=== PATIENT | female | born 1970 | race Caucasian/White ===

== ENCOUNTER 2021-03-10 11:58 | Emergency (ER) | payer SELFPAY ==
[2021-03-10] VITALS (10 sets, daily range): BP systolic 185–231; BP diastolic 106–143; PULSE 75–96; RESP 18; TEMP 36.8–36.9; O2SAT 94–98; BMI 35.2
--- NOTE | 2021-03-10 12:16 | HMH.EDGENADL ---
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 Metformin for diabetes. Protonix as prescribed. See Dr. Cancino in his office on 03/13/2021. Call to make appointment. Prescriptions: atenoloL [Atenolol 50mg Tab] 50 mg PO DAILY #30 tab Transmission Status: Sent to [facility] Losartan Potassium 100 mg PO DAILY #30 tab Transmission Status: Sent to [facility] Metformin HCl [Metformin 1000mg Tablets] 1,000 mg PO BID #60 tab Transmission Status: Sent to [facility] Pantoprazole Sodium [Protonix 40mg tablet] 40 mg PO DAILY #15 tab Transmission Status: Sent to [facility] Referrals: Provider,Referral, [Primary Care Provider] - - Critical Care Critical Care Time: No Attestation: On , the high probability of a clinically significant, sudden or life threatening deterioration of the following system(s) required my full and direct attention, intervention and personal management. The time I documented below is in addition to time spent performing reported procedures but includes the following listed in this critical care notation. Medical Decision Making - [facility] Inquiry Pt receiving controlled substance: No Vital Signs: 03/10/21 12:14 03/10/21 13:00 03/10/21 13:08 Temperature 98.4 F Temperature Source Oral Pulse Rate 96 H Pulse Rate [Radial] 91 H Respiratory Rate 18 Blood Pressure 185/126 H 185/126 H Blood Pressure [Right Arm] 231/143 H Blood Pressure Mean 163 Blood Pressure Mean [Right Arm] 172 Blood Pressure Source Blood Pressure Position Blood Pressure Position [Right Arm] Sitting 02 Sat by Pulse Oximetry 98 94 L Oxygen Delivery Method Room Air 03/10/21 13:11 03/10/21 13:14 03/10/21 13:17 Temperature Temperature Source Pulse Rate 81 Pulse Rate [Radial] Respiratory Rate Blood Pressure 190/116 H 200/134 H 200/134 H Blood Pressure [Right Arm] Blood Pressure Mean 165 Blood Pressure Mean [Right Arm] Blood Pressure Source Manual Cuff/ Auscultation Blood Pressure Position Sitting Sitting Blood Pressure Position [Right Arm] 02 Sat by Pulse Oximetry 98 Oxygen Delivery Method 03/10/21 13:30 03/10/21 14:30 03/10/21 15:00 Temperature Temperature Source Pulse Rate 75 76 76 Pulse Rate [Radial] Respiratory Rate Blood Pressure 198/106 H 204/109 H 206/115 H Blood Pressure [Right Arm] Blood Pressure Mean Blood Pressure Mean [Right Arm] Blood Pressure Source Blood Pressure Position Blood Pressure Position [Right Arm] 02 Sat by Pulse Oximetry 97 97 98 Oxygen Delivery Method Room Air - Lab Data Lab Results 03/10/21 12:05: Urine Color Straw, Urine Appearance Clear, Urine pH 6.5, Ur Specific Devine 1.020, Urine Protein 1+, Urine Glucose (UA) 3+, Urine Ketones Negative, Urine Blood Trace-i, Urine Nitrate Negative, Urine Bilirubin Negative, Urine Urobilinogen 0.2, Ur Leukocyte Esterase Trace, Urine RBC Occasional, Urine WBC 3-5, Ur Squamous Epith Cells 3-5, Amorphous Sediment Trace, Urine Bacteria Trace 03/10/21 12:34: WBC 5.9, RBC 4.70, Hgb 14.9, Hct 44.3, MCV 94.2, MCH 31.7 H, MCHC 33.6, RDW 12.2, Plt Count 254, MPV 7.3 L, Neut % (Auto) 67.6, Lymph % (Auto) 26.3, [place] % (Auto) 4.1, Eos % (Auto) 1.7, Baso % (Auto) 0.4, Neut # (Auto) 4.0, Lymph # (Auto) 1.5, [place] # (Auto) 0.2, Eos # (Auto) 0.1, Baso # (Auto) 0
--- NOTE | 2021-03-10 12:26 | US_ITS ---
PROCEDURE: US GALLBLADDER CLINICAL INDICATION: RUQ pain COMPARISON: No exams were available for comparison FINDINGS: Pancreas: Unremarkable/Not well seen Liver: Unremarkable. There is appropriate direction of blood flow within a non dilated portal vein. Right kidney: Unremarkable appearing. No hydronephrosis. Gallbladder: No stones are evident. There is no gallbladder wall thickening. Common duct is normal in diameter. IMPRESSION: Negative gallbladder ultrasound. No stones evident. Dictated by: Hussein Ahuja MD 03/10/2021 14:39 Hussein Ahuja MD in [facility] 03/10/2021 14:39
[2021-03-10 12:30] LABS: Microscopic, Urine URINE MICROSCOPIC (MICROSCOPIC)
[2021-03-10 12:37] LABS: Appearance,Urine CLEAR (Clear); Bilirubin,Urine Negative (Negative); Blood, Urine TRACE-I (Negative); Color,Urine STRAW (Yellow); Glucose,Urine (UA) 3+ (Negative); Ketones,Urine Negative (Negative); Leukocyte Esterase,Urine TRACE (Negative); Nitrate,Urine Negative (Negative); PH,Urine 6.5 (5.0-8.5); Protein,Urine 1+ (Negative); Urobilinogen,Urine 0.2 EU/dl (0.2)
[2021-03-10 12:45] LABS: Basophils % 0.4 % (0.1-2.0); Eosinophils # 0.1 K/mm3 (0.0-0.4); Eosinophils % 1.7 % (0.1-12.0); Hematocrit 44.3 % (37.0-47.0); Hemoglobin 14.9 g/dL (12.2-16.2); Lymphocytes # 1.5 K/mm3 (0.7-4.5); Lymphocytes % 26.3 % (10-50); Mean Corpuscular HGB Conc 33.6 g/dL (31.8-35.4); Mean Corpuscular Hemoglobin 31.7 pg (27.0-31.2); Mean Corpuscular Volume 94.2 fl (81-99); Mean Platelet Volume 7.3 fl (7.4-10.4); Monocytes # 0.2 K/mm3 (0.1-1.0); Monocytes % 4.1 % (1.7-9.3); Neutrophils % 67.6 % (37.0-80.0); Platelet Count 254 K/mm3 (142-424); Red Cell Distribution Width 12.2 % (11.5-17.5); White Blood Count 5.9 K/mm3 (4.8-10.8)
--- NOTE | 2021-03-10 12:51 | ECG_ITS ---
APPROVED REPORT Exam: Resting ECG HR:79 bpm ECG Measurements Heart Rate 79 AXES [place] 150 P 31 QRSd 92 QRS 0 QT 364 T 45 QTc 417 Conclusion Normal sinus rhythm Nonspecific T wave abnormality Abnormal ECG Electronically signed by : Delvis Soliman MD 03/12/2021 16:10:36
[2021-03-10 12:58] LABS: Amorphous Sediment,Urine Trace /lpf; Bacteria,Urine Trace /lpf; RBC,Urine Occasional #/hpf (0-3)
[2021-03-10 12:58] LABS: Chloride 101 mmol/L (98-107); Potassium 3.9 mmoL/L (3.5-5.1); Sodium 135 mmol/L (136-145)
[2021-03-10 13:01] LABS: Alanine Aminotransferase 19 U/L (12-78); Albumin Level 4.1 g/dl (3.5-5.0); Albumin/Globulin Ratio 1.2 (1.1-1.8); Alkaline Phosphatase 105 U/L (38-126); Anion Gap 11.9 mEq/L (5-15); Aspartate Amino Transferase 24 U/L (14-36); Bilirubin,Total 0.4 mg/dl (0.2-1.3); Blood Urea Nitrogen 12 mg/dl (7-17); Calcium 9.1 mg/dl (8.4-10.2); Carbon Dioxide 26 mmol/L (22.0-30.0); Creatinine Clearance Estimated 204 mL/min (50-200); Estimated Glomerular Filt Rate 131 ml/min (>60); GFR (African American) 158 ML/MIN (>60); Globulin 3.5 g/dL (1.3-3.2); Glucose 352 mg/dl (74-100); Lipase 166 U/L (23-300); Total Protein,Serum 7.6 g/dl (6.3-8.2)
[2021-03-10 13:14] LABS: Troponin I < 0.01 ng/ml (0.00-0.034)
--- NOTE | 2021-03-10 13:33 | PC.NURSE ---
pt taken for ultrasound of gall bladder
--- NOTE | 2021-03-10 14:13 | CT_ITS ---
PROCEDURE: CT ABDOMEN PELVIS W CON CLINICAL INDICATION: abdominal pain COMPARISON: No exams were available for comparison TECHNIQUE: IV Contrast: 75ML Isovue 370 Oral Contrast None Axial images obtained with sagittal and coronal reformats. All CT scans at the facility use one or more dose reduction, viz: automated exposure control, ma/kV adjustment per patient size (including targeted exams where dose is matched to indication, i.e. head), or iterative reconstruction technique. FINDINGS: LOWER THORAX: No acute finding ABDOMEN & PELVIS: Diffuse fatty liver infiltration. Low-density changes are present in the left hepatic lobe near the falciform ligament and may be related to more focal fatty infiltration. There is an indeterminate left adrenal nodule at 2.3 cm with a density of 35 Hounsfield units. There are few small periportal lymph nodes. The spleen head right adrenal gland have an unremarkable appearance. No renal or ureteral calculi. No hydronephrosis. There is a small duodenal diverticulum. Small focal area of calcification involves the pancreatic tail anteriorly nonspecific. No intestinal obstruction or free air. Numerous colonic diverticular present throughout the colon. No evidence of appendicitis. No evidence of diverticulitis. There is a small umbilical hernia containing fat. No pelvic mass or abnormal fluid collection. No acute bony anomalies. IMPRESSION: No acute finding. Indeterminate 2.3 cm left adrenal nodule. Suggest nonemergent CT adrenals without and with contrast with washout images for further evaluation Diffuse colonic diverticulosis. No evidence of diverticulitis. Dictated by: Hussein Ahuja MD 03/10/2021 15:38 Hussein Ahuja MD in [facility] 03/10/2021 15:38
--- NOTE | 2021-03-10 15:00 | PC.NURSE ---
RESTING UPDATED ON PLAN OF CARE
--- NOTE | 2021-03-10 16:00 | PC.NURSE ---
PT RESTING OFFERS NO C/O
== END 2021-03-10 17:05 | disposition home or self-care (01) ==
PROVIDERS: Emergency Provider Emergency Medicine
DX: R10.84 Generalized abdominal pain (principal); I10 Essential (primary) hypertension; E11.65 Type 2 diabetes mellitus with hyperglycemia; Z79.899 Other long term (current) drug therapy
CPT/HCPCS: 74177; 76705; 80053; 81001; 83690; 84484; 85025; 93005; 96374; 99283; Q9967

== ENCOUNTER → 2022-07-04 10:00 | Outpatient (CLI) | payer OTHER, SELFPAY ==
[2022-07-04 19:22] LABS: Eosinophils # 0.2 K/mm3 (0.0-0.4); Eosinophils % 3.6 % (0.1-12.0); Hematocrit 41.5 % (37.0-47.0); Hemoglobin 14.2 g/dL (12.2-16.2); Lymphocytes # 1.6 K/mm3 (0.7-4.5); Lymphocytes % 36.3 % (10-50); Mean Corpuscular HGB Conc 34.2 g/dL (31.8-35.4); Mean Corpuscular Hemoglobin 31.8 pg (27.0-31.2); Mean Platelet Volume 8.8 fl (7.4-10.4); Monocytes # 0.2 K/mm3 (0.1-1.0); Monocytes % 4.5 % (1.7-9.3); Neutrophils # 2.4 K/mm3 (1.8-7.8); Neutrophils % 54.7 % (37.0-80.0); Platelet Count 313 K/mm3 (142-424); Red Blood Count 4.46 M/mm3 (4.20-5.40); Red Cell Distribution Width 12.9 % (11.5-17.5); White Blood Count 4.4 K/mm3 (4.8-10.8)
[2022-07-04 19:28] LABS: Chloride 103 mmol/L (98-107); Potassium 3.8 mmoL/L (3.5-5.1); Sodium 137 mmol/L (136-145)
[2022-07-04 19:30] LABS: Alanine Aminotransferase 18 U/L (12-78); Aspartate Amino Transferase 21 U/L (14-36); Blood Urea Nitrogen 17 mg/dl (7-17); Estimated Glomerular Filt Rate 130 ml/min (>60); GFR (African American) 157 ML/MIN (>60)
[2022-07-04 19:31] LABS: Albumin Level 4.1 g/dl (3.5-5.0); Albumin/Globulin Ratio 1.3 (1.1-1.8); Alkaline Phosphatase 112 U/L (38-126); Anion Gap 12.8 mEq/L (5-15); Bilirubin,Total 0.6 mg/dl (0.2-1.3); Calcium 9.1 mg/dl (8.4-10.2); Carbon Dioxide 25 mmol/L (22.0-30.0); Chol/HDL Ratio 4.1 (1-3.5); Cholesterol 223 mg/dl (140-200); Globulin 3.1 g/dL (1.3-3.2); Glucose 250 mg/dl (74-100); HDL Cholesterol 55 mg/dl (40-60); Total Protein,Serum 7.2 g/dl (6.3-8.2); Triglycerides 111 mg/dl (30-150); VLDL Cholesterol 22 mg/dL (0-40)
[2022-07-04 20:01] LABS: Thyroid Stimulating Hormone 0.64 uIU/mL (0.465-4.68)
[2022-07-05 03:34] LABS: Hemoglobin A1C 12.9 % (4.0-6.0)
== END ==
PROVIDERS: PCP Family Medicine; Visit Provider Family Medicine
DX: Z00.00 Encounter for general adult medical examination without abnormal findings (principal); E11.9 Type 2 diabetes mellitus without complications; I10 Essential (primary) hypertension; R53.83 Other fatigue; Z79.84 Long term (current) use of oral hypoglycemic drugs
CPT/HCPCS: 80053; 80061; 83036; 84443; 85025

== ENCOUNTER → 2022-07-18 13:10 | Outpatient (CLI) | payer OTHER, SELFPAY | PROVIDERS: PCP Family Medicine; Visit Provider Family Medicine | DX: R30.0 Dysuria (principal); B96.29 Other Escherichia coli [E. coli] as the cause of diseases classified elsewhere | CPT/HCPCS: 87086; 87088; 87186 ==

== ENCOUNTER → 2022-07-19 13:23 | Outpatient (CLI) | payer OTHER, SELFPAY ==
[2022-07-19 14:16] LABS: Uric Acid 2.5 mg/dl (2.5-6.2)
[2022-07-19 14:31] LABS: Erythrocyte Sedimentation Rate 16 mm/hr (0-30)
[2022-07-21 05:06] LABS: RA Latex Turbid. <10.0 IU/mL (<14.0)
[2022-07-26 02:37] LABS: Antinuclear Antibodies, IFA POSITIVE
== END ==
PROVIDERS: PCP Family Medicine; Visit Provider Family Medicine
DX: M19.90 Unspecified osteoarthritis, unspecified site (principal)
CPT/HCPCS: 36415; 84550; 85651; 86038; 86431

== ENCOUNTER → 2023-01-22 23:43 | Outpatient (CLI) | payer OTHER, SELFPAY | PROVIDERS: PCP Nurse Practitioner Family; Visit Provider Nurse Practitioner Family | DX: R30.0 Dysuria (principal); B96.29 Other Escherichia coli [E. coli] as the cause of diseases classified elsewhere | CPT/HCPCS: 87086; 87088; 87186 ==

== ENCOUNTER → 2023-05-07 07:26 | Outpatient (CLI) | payer OTHER, SELFPAY ==
[2023-05-07 17:13] LABS: Basophils % 0.7 % (0.1-2.0); Eosinophils # 0.3 K/mm3 (0.0-0.4); Hematocrit 39.5 % (37.0-47.0); Hemoglobin 13.3 g/dL (12.2-16.2); Lymphocytes # 1.5 K/mm3 (0.7-4.5); Lymphocytes % 27.2 % (10-50); Mean Corpuscular HGB Conc 33.7 g/dL (31.8-35.4); Mean Corpuscular Hemoglobin 32.4 pg (27.0-31.2); Mean Corpuscular Volume 96.3 fl (81-99); Monocytes # 0.2 K/mm3 (0.1-1.0); Monocytes % 3.8 % (1.7-9.3); Neutrophils # 3.4 K/mm3 (1.8-7.8); Neutrophils % 63.2 % (37.0-80.0); Platelet Count 279 K/mm3 (142-424); Red Cell Distribution Width 12.8 % (11.5-17.5); White Blood Count 5.4 K/mm3 (4.8-10.8)
[2023-05-07 17:40] LABS: Creatinine,Urine Random 87 mg/dL (Not Estab.)
[2023-05-07 17:42] LABS: Microalbumin/Creatinine Ratio 48.6
[2023-05-07 17:43] LABS: Erythrocyte Sedimentation Rate 23 mm/hr (0-30)
[2023-05-07 18:03] LABS: Alanine Aminotransferase 22 U/L (12-78); Albumin Level 4.1 g/dl (3.5-5.0); Albumin/Globulin Ratio 1.3 (1.1-1.8); Alkaline Phosphatase 66 U/L (38-126); Anion Gap 16.4 mEq/L (5-15); Aspartate Amino Transferase 24 U/L (14-36); Bilirubin,Total 0.3 mg/dl (0.2-1.3); Blood Urea Nitrogen 24 mg/dl (7-17); Calcium 9.4 mg/dl (8.4-10.2); Carbon Dioxide 25 mmol/L (22.0-30.0); Chloride 96 mmol/L (98-107); Chol/HDL Ratio 5.4 (1-3.5); Cholesterol 242 mg/dl (140-200); Estimated Glomerular Filt Rate 75 ml/min (>60); GFR (African American) 91 ML/MIN (>60); Globulin 3.1 g/dL (1.3-3.2); HDL Cholesterol 45 mg/dl (40-60); Potassium 4.4 mmoL/L (3.5-5.1); Sodium 133 mmol/L (136-145); Total Protein,Serum 7.2 g/dl (6.3-8.2); Triglycerides 270 mg/dl (30-150); VLDL Cholesterol 54 mg/dL (0-40)
[2023-05-07 18:08] LABS: Hemoglobin A1C 12.4 % (4.0-6.0)
[2023-05-07 18:14] LABS: C-Reactive Protein 2.6 mg/L (0-4); Direct LDL Cholesterol 140.94 mg/dL (100-129)
[2023-05-07 18:34] LABS: Thyroid Stimulating Hormone 0.45 uIU/mL (0.465-4.68)
[2023-05-07 18:53] LABS: Glucose 444 mg/dl (74-100)
[2023-05-13 09:27] LABS: Antinuclear Antibodies (ANA) Negative
== END ==
PROVIDERS: PCP Nurse Practitioner Family; Visit Provider Nurse Practitioner Family
DX: Z00.00 Encounter for general adult medical examination without abnormal findings (principal); M79.641 Pain in right hand; M79.671 Pain in right foot; M79.672 Pain in left foot; M79.642 Pain in left hand; E11.9 Type 2 diabetes mellitus without complications; I10 Essential (primary) hypertension; R53.83 Other fatigue; Z79.84 Long term (current) use of oral hypoglycemic drugs
CPT/HCPCS: 80053; 80061; 82043; 82570; 83036; 84443; 85025; 85651; 86038; 86140

== ENCOUNTER → 2023-06-07 08:24 | Outpatient (CLI) | payer OTHER, SELFPAY | PROVIDERS: PCP Nurse Practitioner Family; Visit Provider Nurse Practitioner Family | DX: R35.0 Frequency of micturition (principal); B96.89 Other specified bacterial agents as the cause of diseases classified elsewhere | CPT/HCPCS: 87086 ==

== ENCOUNTER 2023-07-30 22:04 | Outpatient (CLI) | payer OTHER, SELFPAY | END 2023-07-30 23:59 | LOC: LAB.DROPOF 22:04 | PROVIDERS: PCP Nurse Practitioner Family; Visit Provider Nurse Practitioner Family | DX: R07.0 Pain in throat (principal); Z20.828 Contact with and (suspected) exposure to other viral communicable diseases | CPT/HCPCS: 87070 ==

== ENCOUNTER 2023-09-15 20:23 | Emergency (ER) | payer OTHER, SELFPAY ==
[2023-09-15] VITALS (9 sets, daily range): BP systolic 131–165; BP diastolic 68–92; PULSE 101–130; RESP 16; TEMP 37.4; O2SAT 90–99; BMI 34.1
--- NOTE | 2023-09-15 20:40 | ED_ITS ---
Discharge Plan Disposition Patient Disposition: Admitted Prescriptions Prescriptions: No Action hydroxyzine HCl 10 mg tablet 10 mg PO HS Qty: 30 2RF escitalopram oxalate [Lexapro] 20 mg tablet 20 mg PO DAILY Qty: 90 1RF amlodipine [Norvasc] 10 mg tablet 10 mg PO DAILY Qty: 90 3RF hydrochlorothiazide 25 mg tablet 25 mg PO DAILY Qty: 90 3RF metformin 500 mg tablet extended release 24 hr See Rx Instructions .ROUTE .COMPLEX Qty: 120 5RF Dose Instruction: Take 2 tablets by mouth twice daily Rx Instructions: Take 2 tablets by mouth twice daily lisinopril 10 mg tablet See Rx Instructions .ROUTE .COMPLEX Qty: 30 2RF Dose Instruction: Take 1 tablet by mouth once daily Rx Instructions: Take 1 tablet by mouth once daily glipizide 5 mg tablet extended release 24hr 5 mg PO DAILY Qty: 90 0RF Patient Comments: TAKE 1 TABLET BY MOUTH ONCE DAILY insulin glargine 100 unit/mL (3 mL) insulin pen 16 unit SQ HS Qty: 15 2RF Referrals Follow up/Referrals: Dago Matthews MD [Primary Care Provider] - See instructions Clinical Impressions Clinical Impression: Tachycardia, Hypoxia, Myalgia, Cough Discharge ED Provider: Ivana Wyatt General Adult HPI <VENUS Marques - Last Filed: 09/15/23 22:35> General Chief complaint: Fever Stated complaint: ,Dizziness,fever,nausea,weakness Time Seen by Provider: 09/15/23 20:40 History of Present Illness HPI narrative: Patient presents for evaluation of headache malaise subjective fever body aches. 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 Patient reports onset of bodyaches subjective fever and now headache over the last 2 days. Patient reports a dry nonproductive cough. Patient denies shortness of breath chills hemoptysis hematochezia melena vomit diarrhea. Related Data Previous Rx's Medication Instructions Recorded amlodipine 10 mg tablet (Norvasc) 10 mg PO DAILY high blood pressure 09/26/22 #90 tabs hydrochlorothiazide 25 mg tablet 25 mg PO DAILY #90 tabs 09/26/22 hydroxyzine HCl 10 mg tablet 10 mg PO HS #30 tabs 06/07/23 metformin 500 mg tablet,extended See Rx Instructions .Route 06/25/23 release 24 hr .COMPLEX #120 tabs lisinopril 10 mg tablet See Rx Instructions .Route 07/12/23 .COMPLEX #30 tabs escitalopram oxalate 20 mg tablet 20 mg PO DAILY #90 tabs 08/09/23 (Lexapro) glipizide 5 mg tablet, extended 5 mg PO DAILY Diabetes #90 tabs 09/02/23 release 24 hr insulin glargine 100 unit/mL (3 16 unit (0.16 mL) SQ HS #15 mL 09/02/23 mL) subcutaneous pen Allergies Allergy/AdvReac Type Severity Reaction Status Date / Time No Known Allergies Allergy Verified 08/09/23 10:09 [facility] <VENUS Marques - Last Filed: 09/15/23 22:35> [facility] Disclaimer: The information contained in this section may have been updated after the patient was seen, as this information can be updated by other users. Medical History Arthritis Hypertension Surgical History History of Family History Mother Cancer Diabetes Hypertension Grandmother Cancer Coronary artery disease Diabetes Hypertension Social History Smoking Status: Never smoker alcohol intake: never substance use type: denies use current occupational status: employed Travel in the last 8 weeks: None household members: spouse, children and other housing: house <VENUS Marques - Last Filed: 09/15/23 22:35> ROS Obtained: Yes Systems reviewed as appropriate & no additional complaints except as documented Physical Exam <VENUS Marques - Last Filed: 09/15/23 22:35> General General appearance: alert and in no apparent distress Eye Eye exam: Present normal appearance and PERRL ENT ENT exam: Present normal exam, normal oropharynx (No exudate posterior pharynx) and mucous membranes moist Neck Neck exam: Present normal inspection and full ROM; Absent lymphadenopathy Chest Chest inspection: Present normal inspection and symmetric chest wall rise Respiratory Respiratory exam: Present normal lung sounds bilaterally; Absent respiratory distress or wheezes Cardiovascular Cardiovascular exam: Present regular rate and normal rhythm Abdominal Exam Abdominal exam: Present soft and normal bowel sounds; Absent tenderness Extremities Exam Extremities exam: Present normal inspection and full ROM Neurological Exam Neurological exam: Present alert and oriented X3; Absent CN II-XII intact Psychiatric Psychiatric exam: Present normal affect and normal mood Skin Skin exam: Present warm, dry and normal color Medical Decision Making <VENUS Marques - Last Filed: 09/15/23 22:35> Medical Records Medical records reviewed: Yes I reviewed the patient's medical records. [facility] Pt receiving controlled substance: No Vital Signs: 09/15/23 20:25 09/15/23 20:45 09/15/23 21:30 Temperature 99.4 F Temperature Source Oral Pulse Rate 130 H 120 H Pulse Rate [Left] 127 H Respiratory Rate 16 Blood Pressure 140/82 139/86 Blood Pressure [Right Arm] 158/92 H Blood Pressure Mean 102 99 Blood Pressure Mean [Right Arm] 114 Blood Pressure Source [Right Arm] Automatic Cuff Blood Pressure Position [Right Arm] Sitting 02 Sat by Pulse Oximetry 93 L 92 L 90 L Oxygen Delivery Method Room Air Oxygen Flow Rate (LPM) 09/15/23 21:46 09/15/23 21:58 09/15/23 21:58 Temperature Temperature Source Pulse Rate 114 H 105 H 101 H Pulse Rate [Left] Respiratory Rate Blood Pressure 165/92 H Blood Pressure [Right Arm] Blood Pressure Mean 105 Blood Pressure Mean [Right Arm] Blood Pressure Source [Right Arm] Blood Pressure Position [Right Arm] 02 Sat by Pulse Oximetry 92 L Oxygen Delivery Method Oxygen Flow Rate (LPM) 09/15/23 22:01 09/15/23 22:22 09/15/23 22:31 Temperature Temperature Source Oral Pulse Rate 109 H 117 H Pulse Rate [Left] Respiratory Rate Blood Pressure 153/88 H 131/84 Blood Pressure [Right Arm] Blood Pressure Mean 95 96 Blood Pressure Mean [Right Arm] Blood Pressure Source [Right Arm] Blood Pressure Position [Right Arm] 02 Sat by Pulse Oximetry 99 91 L Oxygen Delivery Method Oxygen Flow Rate (LPM) 09/15/23 23:01 09/15/23 23:46 09/16/23 00:00 Temperature Temperature Source Pulse Rate 107 H 101 H 96 H Pulse Rate [Left] Respiratory Rate Blood Pressure 131/68 138/90 104/68 L Blood Pressure [Right Arm] Blood Pressure Mean 89 106 80 Blood Pressure Mean [Right Arm] Blood Pressure Source [Right Arm] Blood Pressure Position [Right Arm] 02 Sat by Pulse Oximetry 94 L 94 L 94 L Oxygen Delivery Method Oxygen Flow Rate (LPM) 2 2 2 09/16/23 00:15 Temperature Temperature Source Pulse Rate 95 H Pulse Rate [Left] Respiratory Rate Blood Pressure 109/70 L Blood Pressure [Right Arm] Blood Pressure Mean 76 Blood Pressure Mean [Right Arm] Blood Pressure Source [Right Arm] Blood Pressure Position [Right Arm] 02 Sat by Pulse Oximetry 97 Oxygen Delivery Method Oxygen Flow Rate (LPM) Lab Data Lab results reviewed: Yes I reviewed the patient's lab results. Lab Results 09/15/23 20:40: SARS-CoV-2 (PCR) Not detected, Influenza A Untype (PCR) Not detected, Influenza Type B (PCR) Not detected 09/15/23 21:20: WBC 9.5, RBC 3.54 L, Hgb 11.2 L, Hct 34.4 L, MCV 97.3, MCH 31.7 H, MCHC 32.5, RDW 13.1, Plt Count 208, MPV 8.0, Neut % (Auto) 89.3 H, Lymph % (Auto) 5.5 L, [place] % (Auto) 4.6, Eos % (Auto) 0.3, Baso % (Auto) 0.4, Neut # (Auto) 8.5 H, Lymph # (Auto) 0.5 L, [place] # (Auto) 0.4, Eos # (Auto) 0.0, Baso # (Auto) 0.0, Total Counted 100, Neutrophils % (Manual) 91 H, Lymphocytes % (Manual) 8 L, Monocytes % (Manual) 1 L, Platelet Estimate Normal, RBC Morphology Normal, PT 10.9, INR 1.01, D-Dimer 1.13 H, Sodium 127 L, Potassium 3.7, Chloride 96 L, Carbon Dioxide 22, Anion Gap 12.7, BUN 23 H, Creatinine 1.00, Estimated Creat Clear 96, Estimated GFR 58 L, Est GFR ( Amer) 70, Glucose 363 H, Calcium 8.8, Troponin I < 0.01, NT-Pro-B Natriuret Pep 422 H 09/15/23 21:53: Group A Strep Rapid Negative 09/15/23 21:54: VBG pH 7.44 H, VBG pCO2 34.7 L, VBG pO2 105.6 H, VBG HCO3 22.8 L , VBG Total CO2 23.9, VBG O2 Saturation 98.1 H, VBG Base Excess -1.4, VBG Lactic Acid 2.0 09/15/23 21:55: Chlamy pneumoniae PCR TNP, Adenovirus (PCR) Not detected, B. pertussis DNA (PCR) TNP, Coronavirus OC43 (PCR) Not detected, Coronavirus HKU1 (PCR) Not detected, Coronavirus 229E (PCR) Not detected, SARS-CoV-2 (PCR) Not detected, Coronavirus NL63 (PCR) Not detected, Human Metapneumovir PCR Not detected, Influenza A (H1) PCR Not detected, Influ A (H1N1/09) PCR Not detected, Influenza A (H3) PCR Not detected, Influenza Type A (PCR) Not detected, Influenza Type B (PCR) Not detected, M. pneumoniae (PCR) TNP, Parainfluenza 1 (PCR) Not detected, Parainfluenza 2 (PCR) Not detected, Parainfluenza 3 (PCR) Not detected, Parainfluenza 4 (PCR) Not detected, RSV (PCR) Not detected, Entero/Rhino (PCR) Not detected 09/15/23 21:20 09/15/23 21:20 Orders (Tests/Meds): ED MEDICATIONS Generic Name Dose Route Start Last Admin Trade Name Freq PRN Reason Stop Dose Admin Lactated Ringer's 1,000 mls @ 150 mls/hr 09/15/23 22:30 09/15/23 22:49 Lactated Ringer's 1000 Ml Bag IV 10/15/23 22:29 150 mls/hr .Q6H40M ZAC Administration Piperacillin Sod/Tazobactam 100 mls @ 200 mls/hr 09/16/23 00:43 Sod 4.5 gm/ Sodium Chloride IV 09/16/23 01:12 ONCE ONE Miscellaneous 1 each 09/16/23 00:45 Vancomycin Consult Request NOTAPPLIC 10/16/23 00:44 CONSULT PHARMACY [facility] Discontinued Medications Generic Name Dose Route Start Last Admin Trade Name Freq PRN Reason Stop Dose Admin Acetaminophen 1,000 mg 09/15/23 20:41 09/15/23 20:47 Acetaminophen 500mg Tab PO 09/15/23 20:42 1,000 mg ONCE ONE Administration Albuterol/Ipratropium 3 ml 09/15/23 21:51 09/15/23 21:58 Ipratropium/Albuterol 3 Ml Neb IH 09/15/23 21:52 3 ml ONCE ONE Administration Dexamethasone Sodium Phosphate 10 mg 09/15/23 22:39 09/15/23 22:49 Dexamethasone 4mg/Ml 1ml Vial IV 09/15/23 22:40 10 mg ONCE ONE Administration Lactated Ringer's 1,000 mls @ 999 mls/hr 09/15/23 21:16 09/15/23 21:27 Lactated Ringer's 1000 Ml Bag IV 09/15/23 22:16 999 mls/hr .Q1H1M ONE Administration Iopamidol 70 ml 09/15/23 22:24 09/15/23 22:25 Iopamidol-370 (76%);100ml Bottle IV 09/15/23 22:25 70 ml ONCE ONE Administration Ketorolac Tromethamine 30 mg 09/15/23 20:41 09/15/23 20:47 Ketorolac 30mg/Ml Vial IM 09/15/23 20:42 30 mg ONCE ONE Administration Sodium Chloride 10 ml 09/15/23 22:24 09/15/23 22:25 Sodium Chloride 0.9% 10ml Syr (Rad Only) IV 09/15/23 22:25 10 ml ONCE ONE Administration Sodium Chloride 50 ml 09/15/23 22:24 09/15/23 22:25 0.9 % Sodium Chloride 50 Ml Vial IV 09/15/23 22:25 50 ml ONCE ONE Administration ORDERS Category Date Time Status CTA Chest [CT angio chest PE protocol] Stat Cat Scan 09/15/23 21:51 Completed Chest XR -- portable [XR chest portable] Stat Exams 09/15/23 21:24 Completed BMP [Basic Metabolic Panel] Stat Lab 09/15/23 21:20 Completed BNP [Brain Natriuretic Peptide] Stat Lab 09/15/23 21:20 Completed CBC w/Auto Diff [Complete Blood Count Auto Diff] Stat Lab 09/15/23 21:20 Completed D-Dimer Stat Lab 09/15/23 21:20 Completed Full Resp Panel w/COVID ([facility]) Routine Lab 09/15/23 21:55 Completed INR [Prothrombin Time INR] Stat Lab 09/15/23 21:20 Completed Rapid PCR Covid and Flu A/B Stat Lab 09/15/23 20:40 Completed Strep Scrn Group A (Rapid) Stat Lab 09/15/23 21:53 Completed Trop I [Troponin I] Stat Lab 09/15/23 21:20 Completed Troponin I Q3H Lab 09/16/23 01:30 Ordered Troponin I Q3H Lab 09/16/23 04:30 Ordered Blood Culture Stat Micro 09/16/23 00:44 Ordered Strep Screen Confirmation Stat Micro 09/15/23 21:53 Received VBG [Venous Blood Gas] Stat RT 09/15/23 21:54 Completed Medical Decision Narrative: In summary patient is a 53-year-old female who presents to the emergency department for evaluation of cough fever headache malaise. Patient is tachycardic normotensive satting at 93% on room air upon arrival, with a temperature of 99.4. Physical exam however is unremarkable and nonfocal including no exudate in posterior pharynx no focal neurologic signs clear breath sounds without any adventitious sounds what appears to be sinus tachycardia on the bedside monitor. Differential diagnosis includes viral bacterial infection including COVID flu or strep. Initial workup will be conducted with COVID and flu swabs. Initial interventions include Tylenol Toradol fluid bolus. Initial workup reviewed by me is that her COVID and flu are negative however patient has borderline oxygen saturation of 90 to 93% on room air although she is not having any increased work of breathing. She is a never smoker never has carried a diagnosis of asthma or COPD. Will broaden her workup to include additional laboratory investigations and CTA PE protocol. We are awaiting the official CT read additional laboratory results and reassessment of vitals at the time of turnover to Dr. Quintana at 11 PM. <Ivana Wyatt MD - Last Filed: 09/15/23 22:46> Vital Signs: 09/15/23 20:25 09/15/23 20:45 09/15/23 21:30 Temperature 99.4 F Temperature Source Oral Pulse Rate 130 H 120 H Pulse Rate [Left] 127 H Respiratory Rate 16 Blood Pressure 140/82 139/86 Blood Pressure [Right Arm] 158/92 H Blood Pressure Mean 102 99 Blood Pressure Mean [Right Arm] 114 Blood Pressure Source [Right Arm] Automatic Cuff Blood Pressure Position [Right Arm] Sitting 02 Sat by Pulse Oximetry 93 L 92 L 90 L Oxygen Delivery Method Room Air Oxygen Flow Rate (LPM) 09/15/23 21:46 09/15/23 21:58 09/15/23 21:58 Temperature Temperature Source Pulse Rate 114 H 105 H 101 H Pulse Rate [Left] Respiratory Rate Blood Pressure 165/92 H Blood Pressure [Right Arm] Blood Pressure Mean 105 Blood Pressure Mean [Right Arm] Blood Pressure Source [Right Arm] Blood Pressure Position [Right Arm] 02 Sat by Pulse Oximetry 92 L Oxygen Delivery Method Oxygen Flow Rate (LPM) 09/15/23 22:01 09/15/23 22:22 09/15/23 22:31 Temperature Temperature Source Oral Pulse Rate 109 H 117 H Pulse Rate [Left] Respiratory Rate Blood Pressure 153/88 H 131/84 Blood Pressure [Right Arm] Blood Pressure Mean 95 96 Blood Pressure Mean [Right Arm] Blood Pressure Source [Right Arm] Blood Pressure Position [Right Arm] 02 Sat by Pulse Oximetry 99 91 L Oxygen Delivery Method Oxygen Flow Rate (LPM) 09/15/23 23:01 09/15/23 23:46 09/16/23 00:00 Temperature Temperature Source Pulse Rate 107 H 101 H 96 H Pulse Rate [Left] Respiratory Rate Blood Pressure 131/68 138/90 104/68 L Blood Pressure [Right Arm] Blood Pressure Mean 89 106 80 Blood Pressure Mean [Right Arm] Blood Pressure Source [Right Arm] Blood Pressure Position [Right Arm] 02 Sat by Pulse Oximetry 94 L 94 L 94 L Oxygen Delivery Method Oxygen Flow Rate (LPM) 2 2 2 09/16/23 00:15 Temperature Temperature Source Pulse Rate 95 H Pulse Rate [Left] Respiratory Rate Blood Pressure 109/70 L Blood Pressure [Right Arm] Blood Pressure Mean 76 Blood Pressure Mean [Right Arm] Blood Pressure Source [Right Arm] Blood Pressure Position [Right Arm] 02 Sat by Pulse Oximetry 97 Oxygen Delivery Method Oxygen Flow Rate (LPM) Lab Data Lab Results 09/15/23 20:40: SARS-CoV-2 (PCR) Not detected, Influenza A Untype (PCR) Not detected, Influenza Type B (PCR) Not detected 09/15/23 21:20: WBC 9.5, RBC 3.54 L, Hgb 11.2 L, Hct 34.4 L, MCV 97.3, MCH 31.7 H, MCHC 32.5, RDW 13.1, Plt Count 208, MPV 8.0, Neut % (Auto) 89.3 H, Lymph % (Auto) 5.5 L, [place] % (Auto) 4.6, Eos % (Auto) 0.3, Baso % (Auto) 0.4, Neut # (Auto) 8.5 H, Lymph # (Auto) 0.5 L, [place] # (Auto) 0.4, Eos # (Auto) 0.0, Baso # (Auto) 0.0, Total Counted 100, Neutrophils % (Manual) 91 H, Lymphocytes % (Manual) 8 L, Monocytes % (Manual) 1 L, Platelet Estimate Normal, RBC Morphology Normal, PT 10.9, INR 1.01, D-Dimer 1.13 H, Sodium 127 L, Potassium 3.7, Chloride 96 L, Carbon Dioxide 22, Anion Gap 12.7, BUN 23 H, Creatinine 1.00, Estimated Creat Clear 96, Estimated GFR 58 L, Est GFR ( Amer) 70, Glucose 363 H, Calcium 8.8, Troponin I < 0.01, NT-Pro-B Natriuret Pep 422 H 09/15/23 21:53: Group A Strep Rapid Negative 09/15/23 21:54: VBG pH 7.44 H, VBG pCO2 34.7 L, VBG pO2 105.6 H, VBG HCO3 22.8 L , VBG Total CO2 23.9, VBG O2 Saturation 98.1 H, VBG Base Excess -1.4, VBG Lactic Acid 2.0 09/15/23 21:55: Chlamy pneumoniae PCR TNP, Adenovirus (PCR) Not detected, B. pertussis DNA (PCR) TNP, Coronavirus OC43 (PCR) Not detected, Coronavirus HKU1 (PCR) Not detected, Coronavirus 229E (PCR) Not detected, SARS-CoV-2 (PCR) Not detected, Coronavirus NL63 (PCR) Not detected, Human Metapneumovir PCR Not detected, Influenza A (H1) PCR Not detected, Influ A (H1N1/09) PCR Not detected, Influenza A (H3) PCR Not detected, Influenza Type A (PCR) Not detected, Influenza Type B (PCR) Not detected, M. pneumoniae (PCR) TNP, Parainfluenza 1 (PCR) Not detected, Parainfluenza 2 (PCR) Not detected, Parainfluenza 3 (PCR) Not detected, Parainfluenza 4 (PCR) Not detected, RSV (PCR) Not detected, Entero/Rhino (PCR) Not detected Orders (Tests/Meds): ED MEDICATIONS Generic Name Dose Route Start Last Admin Trade Name Freq PRN Reason Stop Dose Admin Lactated Ringer's 1,000 mls @ 150 mls/hr 09/15/23 22:30 09/15/23 22:49 Lactated Ringer's 1000 Ml Bag IV 10/15/23 22:29 150 mls/hr .Q6H40M ZAC Administration Piperacillin Sod/Tazobactam 100 mls @ 200 mls/hr 09/16/23 00:43 Sod 4.5 gm/ Sodium Chloride IV 09/16/23 01:12 ONCE ONE Miscellaneous 1 each 09/16/23 00:45 Vancomycin Consult Request NOTAPPLIC 10/16/23 00:44 CONSULT PHARMACY [facility] Discontinued Medications Generic Name Dose Route Start Last Admin Trade Name Freq PRN Reason Stop Dose Admin Acetaminophen 1,000 mg 09/15/23 20:41 09/15/23 20:47 Acetaminophen 500mg Tab PO 09/15/23 20:42 1,000 mg ONCE ONE Administration Albuterol/Ipratropium 3 ml 09/15/23 21:51 09/15/23 21:58 Ipratropium/Albuterol 3 Ml Neb IH 09/15/23 21:52 3 ml ONCE ONE Administration Dexamethasone Sodium Phosphate 10 mg 09/15/23 22:39 09/15/23 22:49 Dexamethasone 4mg/Ml 1ml Vial IV 09/15/23 22:40 10 mg ONCE ONE Administration Lactated Ringer's 1,000 mls @ 999 mls/hr 09/15/23 21:16 09/15/23 21:27 Lactated Ringer's 1000 Ml Bag IV 09/15/23 22:16 999 mls/hr .Q1H1M ONE Administration Iopamidol 70 ml 09/15/23 22:24 09/15/23 22:25 Iopamidol-370 (76%);100ml Bottle IV 09/15/23 22:25 70 ml ONCE ONE Administration Ketorolac Tromethamine 30 mg 09/15/23 20:41 09/15/23 20:47 Ketorolac 30mg/Ml Vial IM 09/15/23 20:42 30 mg ONCE ONE Administration Sodium Chloride 10 ml 09/15/23 22:24 09/15/23 22:25 Sodium Chloride 0.9% 10ml Syr (Rad Only) IV 09/15/23 22:25 10 ml ONCE ONE Administration Sodium Chloride 50 ml 09/15/23 22:24 09/15/23 22:25 0.9 % Sodium Chloride 50 Ml Vial IV 09/15/23 22:25 50 ml ONCE ONE Administration ORDERS Category Date Time Status CTA Chest [CT angio chest PE protocol] Stat Cat Scan 09/15/23 21:51 Completed Chest XR -- portable [XR chest portable] Stat Exams 09/15/23 21:24 Completed BMP [Basic Metabolic Panel] Stat Lab 09/15/23 21:20 Completed BNP [Brain Natriuretic Peptide] Stat Lab 09/15/23 21:20 Completed CBC w/Auto Diff [Complete Blood Count Auto Diff] Stat Lab 09/15/23 21:20 Completed D-Dimer Stat Lab 09/15/23 21:20 Completed Full Resp Panel w/COVID ([facility]) Routine Lab 09/15/23 21:55 Completed INR [Prothrombin Time INR] Stat Lab 09/15/23 21:20 Completed Rapid PCR Covid and Flu A/B Stat Lab 09/15/23 20:40 Completed Strep Scrn Group A (Rapid) Stat Lab 09/15/23 21:53 Completed Trop I [Troponin I] Stat Lab 09/15/23 21:20 Completed Troponin I Q3H Lab 09/16/23 01:30 Ordered Troponin I Q3H Lab 09/16/23 04:30 Ordered Blood Culture Stat Micro 09/16/23 00:44 Ordered Strep Screen Confirmation Stat Micro 09/15/23 21:53 Received VBG [Venous Blood Gas] Stat RT 09/15/23 21:54 Completed ECG Data Tracing #1: I reviewed this ECG and interpreted as documented below: Ventricular rate of 118 sinus tachycardia no acute ischemic changes noted no significant conduction abnormalities normal axis Medical Decision Narrative: In summary patient is a 53-year-old female who presents to the emergency department for evaluation of cough fever headache malaise. Patient is tachycardic normotensive satting at 93% on room air upon arrival, with a temperature of 99.4. Physical exam however is unremarkable and nonfocal including no exudate in posterior pharynx no focal neurologic signs clear breath sounds without any adventitious sounds what appears to be sinus tachycardia on the bedside monitor. Differential diagnosis includes viral bacterial infection including COVID flu or strep. Initial workup will be conducted with COVID and flu swabs. Initial interventions include Tylenol Toradol fluid bolus. Initial workup reviewed by me is that her COVID and flu are negative however patient has borderline oxygen saturation of 90 to 93% on room air although she is not having any increased work of breathing. She is a never smoker never has carried a diagnosis of asthma or COPD. Will broaden her workup to include additional laboratory investigations and CTA PE protocol. We are awaiting the official CT read additional laboratory results and reassessment of vitals at the time of turnover to Dr. Quintana at 11 PM. I was consulted by the SELINA, and we discussed the complexity of the problems being addressed. I approved the treatment and management plan for this patient's care in the emergency department, thus performing a substantive portion of the medical decision making. I personally evaluated this patient as well she did have cough fevers at home up to 102 some myalgias on my assessment she was tachycardic to 120 with oxygen saturations ranging between 90 and 94 which is abnormally low for somebody with no history of lung disease. Chest x-ray was performed which I first interpreted shows no obvious consolidation D-dimer was elevated CT PE was performed which I personally interpreted shows no pulmonary embolism or focal consolidation this is also consistent with radiology read. Patient remains persistently tachycardic despite IV fluids try to get her heart rate down to less than 110 she does not require supplemental oxygen awaiting full respiratory viral panel. At the moment it is possible that she is bacteremic but I suspect she will be able to go home and this is a low likelihood. We did not get blood cultures. Ivana Wyatt MD, ODETTE, FACEP <Andres Quintana MD - Last Filed: 09/16/23 00:51> Vital Signs: 09/15/23 20:25 09/15/23 20:45 09/15/23 21:30 Temperature 99.4 F Temperature Source Oral Pulse Rate 130 H 120 H Pulse Rate [Left] 127 H Respiratory Rate 16 Blood Pressure 140/82 139/86 Blood Pressure [Right Arm] 158/92 H Blood Pressure Mean 102 99 Blood Pressure Mean [Right Arm] 114 Blood Pressure Source [Right Arm] Automatic Cuff Blood Pressure Position [Right Arm] Sitting 02 Sat by Pulse Oximetry 93 L 92 L 90 L Oxygen Delivery Method Room Air Oxygen Flow Rate (LPM) 09/15/23 21:46 09/15/23 21:58 09/15/23 21:58 Temperature Temperature Source Pulse Rate 114 H 105 H 101 H Pulse Rate [Left] Respiratory Rate Blood Pressure 165/92 H Blood Pressure [Right Arm] Blood Pressure Mean 105 Blood Pressure Mean [Right Arm] Blood Pressure Source [Right Arm] Blood Pressure Position [Right Arm] 02 Sat by Pulse Oximetry 92 L Oxygen Delivery Method Oxygen Flow Rate (LPM) 09/15/23 22:01 09/15/23 22:22 09/15/23 22:31 Temperature Temperature Source Oral Pulse Rate 109 H 117 H Pulse Rate [Left] Respiratory Rate Blood Pressure 153/88 H 131/84 Blood Pressure [Right Arm] Blood Pressure Mean 95 96 Blood Pressure Mean [Right Arm] Blood Pressure Source [Right Arm] Blood Pressure Position [Right Arm] 02 Sat by Pulse Oximetry 99 91 L Oxygen Delivery Method Oxygen Flow Rate (LPM) 09/15/23 23:01 09/15/23 23:46 09/16/23 00:00 Temperature Temperature Source Pulse Rate 107 H 101 H 96 H Pulse Rate [Left] Respiratory Rate Blood Pressure 131/68 138/90 104/68 L Blood Pressure [Right Arm] Blood Pressure Mean 89 106 80 Blood Pressure Mean [Right Arm] Blood Pressure Source [Right Arm] Blood Pressure Position [Right Arm] 02 Sat by Pulse Oximetry 94 L 94 L 94 L Oxygen Delivery Method Oxygen Flow Rate (LPM) 2 2 2 09/16/23 00:15 Temperature Temperature Source Pulse Rate 95 H Pulse Rate [Left] Respiratory Rate Blood Pressure 109/70 L Blood Pressure [Right Arm] Blood Pressure Mean 76 Blood Pressure Mean [Right Arm] Blood Pressure Source [Right Arm] Blood Pressure Position [Right Arm] 02 Sat by Pulse Oximetry 97 Oxygen Delivery Method Oxygen Flow Rate (LPM) Lab Data Lab Results 09/15/23 20:40: SARS-CoV-2 (PCR) Not detected, Influenza A Untype (PCR) Not detected, Influenza Type B (PCR) Not detected 09/15/23 21:20: WBC 9.5, RBC 3.54 L, Hgb 11.2 L, Hct 34.4 L, MCV 97.3, MCH 31.7 H, MCHC 32.5, RDW 13.1, Plt Count 208, MPV 8.0, Neut % (Auto) 89.3 H, Lymph % (Auto) 5.5 L, [place] % (Auto) 4.6, Eos % (Auto) 0.3, Baso % (Auto) 0.4, Neut # (Auto) 8.5 H, Lymph # (Auto) 0.5 L, [place] # (Auto) 0.4, Eos # (Auto) 0.0, Baso # (Auto) 0.0, Total Counted 100, Neutrophils % (Manual) 91 H, Lymphocytes % (Manual) 8 L, Monocytes % (Manual) 1 L, Platelet Estimate Normal, RBC Morphology Normal, PT 10.9, INR 1.01, D-Dimer 1.13 H, Sodium 127 L, Potassium 3.7, Chloride 96 L, Carbon Dioxide 22, Anion Gap 12.7, BUN 23 H, Creatinine 1.00, Estimated Creat Clear 96, Estimated GFR 58 L, Est GFR ( Amer) 70, Glucose 363 H, Calcium 8.8, Troponin I < 0.01, NT-Pro-B Natriuret Pep 422 H 09/15/23 21:53: Group A Strep Rapid Negative 09/15/23 21:54: VBG pH 7.44 H, VBG pCO2 34.7 L, VBG pO2 105.6 H, VBG HCO3 22.8 L , VBG Total CO2 23.9, VBG O2 Saturation 98.1 H, VBG Base Excess -1.4, VBG Lactic Acid 2.0 09/15/23 21:55: Chlamy pneumoniae PCR TNP, Adenovirus (PCR) Not detected, B. pertussis DNA (PCR) TNP, Coronavirus OC43 (PCR) Not detected, Coronavirus HKU1 (PCR) Not detected, Coronavirus 229E (PCR) Not detected, SARS-CoV-2 (PCR) Not detected, Coronavirus NL63 (PCR) Not detected, Human Metapneumovir PCR Not detected, Influenza A (H1) PCR Not detected, Influ A (H1N1/09) PCR Not detected, Influenza A (H3) PCR Not detected, Influenza Type A (PCR) Not detected, Influenza Type B (PCR) Not detected, M. pneumoniae (PCR) TNP, Parainfluenza 1 (PCR) Not detected, Parainfluenza 2 (PCR) Not detected, Parainfluenza 3 (PCR) Not detected, Parainfluenza 4 (PCR) Not detected, RSV (PCR) Not detected, Entero/Rhino (PCR) Not detected Orders (Tests/Meds): ED MEDICATIONS Generic Name Dose Route Start Last Admin Trade Name Freq PRN Reason Stop Dose Admin Lactated Ringer's 1,000 mls @ 150 mls/hr 09/15/23 22:30 09/15/23 22:49 Lactated Ringer's 1000 Ml Bag IV 10/15/23 22:29 150 mls/hr .Q6H40M ZAC Administration Piperacillin Sod/Tazobactam 100 mls @ 200 mls/hr 09/16/23 00:43 Sod 4.5 gm/ Sodium Chloride IV 09/16/23 01:12 ONCE ONE Miscellaneous 1 each 09/16/23 00:45 Vancomycin Consult Request NOTAPPLIC 10/16/23 00:44 CONSULT PHARMACY [facility] Discontinued Medications Generic Name Dose Route Start Last Admin Trade Name Freq PRN Reason Stop Dose Admin Acetaminophen 1,000 mg 09/15/23 20:41 09/15/23 20:47 Acetaminophen 500mg Tab PO 09/15/23 20:42 1,000 mg ONCE ONE Administration Albuterol/Ipratropium 3 ml 09/15/23 21:51 09/15/23 21:58 Ipratropium/Albuterol 3 Ml Neb IH 09/15/23 21:52 3 ml ONCE ONE Administration Dexamethasone Sodium Phosphate 10 mg 09/15/23 22:39 09/15/23 22:49 Dexamethasone 4mg/Ml 1ml Vial IV 09/15/23 22:40 10 mg ONCE ONE Administration Lactated Ringer's 1,000 mls @ 999 mls/hr 09/15/23 21:16 09/15/23 21:27 Lactated Ringer's 1000 Ml Bag IV 09/15/23 22:16 999 mls/hr .Q1H1M ONE Administration Iopamidol 70 ml 09/15/23 22:24 09/15/23 22:25 Iopamidol-370 (76%);100ml Bottle IV 09/15/23 22:25 70 ml ONCE ONE Administration Ketorolac Tromethamine 30 mg 03/17/24 20:41 09/15/23 20:47 Ketorolac 30mg/Ml Vial IM 09/15/23 20:42 30 mg ONCE ONE Administration Sodium Chloride 10 ml 09/15/23 22:24 09/15/23 22:25 Sodium Chloride 0.9% 10ml Syr (Rad Only) IV 09/15/23 22:25 10 ml ONCE ONE Administration Sodium Chloride 50 ml 09/15/23 22:24 09/15/23 22:25 0.9 % Sodium Chloride 50 Ml Vial IV 09/15/23 22:25 50 ml ONCE ONE Administration ORDERS Category Date Time Status CTA Chest [CT angio chest PE protocol] Stat Cat Scan 09/15/23 21:51 Completed Chest XR -- portable [XR chest portable] Stat Exams 09/15/23 21:24 Completed BMP [Basic Metabolic Panel] Stat Lab 09/15/23 21:20 Completed BNP [Brain Natriuretic Peptide] Stat Lab 09/15/23 21:20 Completed CBC w/Auto Diff [Complete Blood Count Auto Diff] Stat Lab 09/15/23 21:20 Completed D-Dimer Stat Lab 09/15/23 21:20 Completed Full Resp Panel w/COVID ([facility]) Routine Lab 09/15/23 21:55 Completed INR [Prothrombin Time INR] Stat Lab 09/15/23 21:20 Completed Rapid PCR Covid and Flu A/B Stat Lab 09/15/23 20:40 Completed Strep Scrn Group A (Rapid) Stat Lab 09/15/23 21:53 Completed Trop I [Troponin I] Stat Lab 09/15/23 21:20 Completed Troponin I Q3H Lab 09/16/23 01:30 Ordered Troponin I Q3H Lab 09/16/23 04:30 Ordered Blood Culture Stat Micro 09/16/23 00:44 Ordered Strep Screen Confirmation Stat Micro 09/15/23 21:53 Received VBG [Venous Blood Gas] Stat RT 09/15/23 21:54 Completed Tissue Perfus/Sepsis Re-Eval Sepsis Re-Evaluation Performed: Yes Date Performed: 09/16/23 Time Performed: 00:51 Medical Decision Narrative: In summary patient is a 53-year-old female who presents to the emergency department for evaluation of cough fever headache malaise. Patient is tachycardic normotensive satting at 93% on room air upon arrival, with a temperature of 99.4. Physical exam however is unremarkable and nonfocal including no exudate in posterior pharynx no focal neurologic signs clear breath sounds without any adventitious sounds what appears to be sinus tachycardia on the bedside monitor. Differential diagnosis includes viral bacterial infection including COVID flu or strep. Initial workup will be conducted with COVID and flu swabs. Initial interventions include Tylenol Toradol fluid bolus. Initial workup reviewed by me is that her COVID and flu are negative however patient has borderline oxygen saturation of 90 to 93% on room air although she is not having any increased work of breathing. She is a never smoker never has carried a diagnosis of asthma or COPD. Will broaden her workup to include additional laboratory investigations and CTA PE protocol. We are awaiting the official CT read additional laboratory results and reassessment of vitals at the time of turnover to Dr. Quintana at 11 PM. I was consulted by the SELINA, and we discussed the complexity of the problems being addressed. I approved the treatment and management plan for this patient's care in the emergency department, thus performing a substantive portion of the medical decision making. I personally evaluated this patient as well she did have cough fevers at home up to 102 some myalgias on my assessment she was tachycardic to 120 with oxygen saturations ranging between 90 and 94 which is abnormally low for somebody with no history of lung disease. Chest x-ray was performed which I first interpreted shows no obvious consolidation D-dimer was elevated CT PE was performed which I personally interpreted shows no pulmonary embolism or focal consolidation this is also consistent with radiology read. Patient remains persistently tachycardic despite IV fluids try to get her heart rate down to less than 110 she does not require supplemental oxygen awaiting full respiratory viral panel. At the moment it is possible that she is bacteremic but I suspect she will be able to go home and this is a low likelihood. We did not get blood cultures. Ivana Wyatt MD, ODETTE, MARLO Quintana MD: I assumed care of the patient at the time of handoff from the prior provider. On reassessment patient's tachycardia improved on my interpretation of patient monitor, now sinus rhythm in the 90s. Full viral respiratory panel returned negative. We discontinued patient's nasal cannula, however she quickly dropped down to between 82 and 86 and maintained there. Given this, she was placed back on nasal cannula oxygen. Blood cultures were obtained and broad-spectrum antibiotics were initiated given possible pneumonia. I had an interactive discussion with the patient regarding her presentation. She was agreeable for admission. Interactive discussion was had with the hospitalist on-call for admission for acute hypoxic respiratory failure. Critical Care <VENUS Marques - Last Filed: 09/15/23 22:35> Critical Care Time Critical Care Time: No
[2023-09-15] MEDS: KETOROLAC 30MG/ML VIAL 30 MG IM (20:47)
[2023-09-15] MEDS: ACETAMINOPHEN 500MG TAB 1000 MG PO (20:47)
[2023-09-15 20:56] LABS: Coronavirus 19, PCR Not Detected (NotDetected); Influenza A, PCR Not Detected (NotDetected); Influenza B, PCR Not Detected (NotDetected)
--- NOTE | 2023-09-15 21:24 | XR_ITS ---
PROCEDURE INFORMATION: Exam: XR Chest Exam date and time: 09/15/2023 9:39 PM Age: 53 years old Clinical indication: Fever; Additional info: Fever tachycardia TECHNIQUE: Imaging protocol: Radiologic exam of the chest. Views: 1 view. COMPARISON: CT ABDOMEN PELVIS W CON 03/10/2021 3:20 PM FINDINGS: Lungs: Normal. Pleural spaces: Unremarkable. No pleural effusion. No pneumothorax. Heart/Mediastinum: Normal. Bones/joints: No acute abnormality. IMPRESSION: No acute findings.
[2023-09-15] MEDS: LACTATED RINGERS 1000ML 1,000 ML 999 ML IV (21:27)
[2023-09-15 21:36] LABS: Basophils % 0.4 % (0.1-2.0); Eosinophils % 0.3 % (0.1-12.0); Hematocrit 34.4 % (37.0-47.0); Hemoglobin 11.2 g/dL (12.2-16.2); Lymphocytes # 0.5 K/mm3 (0.7-4.5); Lymphocytes % 5.5 % (10-50); Mean Corpuscular HGB Conc 32.5 g/dL (31.8-35.4); Mean Corpuscular Hemoglobin 31.7 pg (27.0-31.2); Mean Corpuscular Volume 97.3 fl (81-99); Monocytes # 0.4 K/mm3 (0.1-1.0); Monocytes % 4.6 % (1.7-9.3); Neutrophils # 8.5 K/mm3 (1.8-7.8); Neutrophils % 89.3 % (37.0-80.0); Platelet Count 208 K/mm3 (142-424); Red Blood Count 3.54 M/mm3 (4.20-5.40); Red Cell Distribution Width 13.1 % (11.5-17.5); White Blood Count 9.5 K/mm3 (4.8-10.8)
[2023-09-15 21:39] LABS: Anion Gap 12.7 mEq/L (5-15); Calcium 8.8 mg/dl (8.4-10.2); Carbon Dioxide 22 mmol/L (22.0-30.0); Chloride 96 mmol/L (98-107); Glucose 363 mg/dl (74-100); Potassium 3.7 mmoL/L (3.5-5.1); Sodium 127 mmol/L (136-145)
[2023-09-15 21:40] LABS: MANUAL DIFFERENTIAL MANUAL DIFFERENTIAL (MANUAL DIFF)
[2023-09-15 21:44] LABS: Blood Urea Nitrogen 23 mg/dl (7-17); Creatinine Clearance Estimated 96 mL/min (50-200); D-Dimer 1.13 ug/mL (0.0-0.5); Estimated Glomerular Filt Rate 58 ml/min (>60); GFR (African American) 70 ML/MIN (>60)
--- NOTE | 2023-09-15 21:51 | CT_ITS ---
PROCEDURE INFORMATION: Exam: CTA Chest With Contrast Exam date and time: 09/15/2023 10:14 PM Age: 53 years old Clinical indication: Abnormal findings; Abnormal diagnostic tests; Elevated d-dimer; Additional info: Tachycardia, fever, elevated d-dimer TECHNIQUE: Imaging protocol: Computed tomographic angiography of the chest with contrast. Exam focused on the arteries. 3D rendering (Not supervised by radiologist): MIP and/or 3D reconstructed images were created by the technologist. Radiation optimization: All CT scans at this facility use at least one of these dose optimization techniques: automated exposure control; mA and/or kV adjustment per patient size (includes targeted exams where dose is matched to clinical indication); or iterative reconstruction. Contrast material: ISOVUE 370; Contrast volume: 70 ml; Contrast route: INTRAVENOUS (IV); COMPARISON: CR XR CHEST PORTABLE 09/15/2023 9:39 PM FINDINGS: Pulmonary arteries: Normal. No pulmonary emboli. Aorta: Unremarkable. No aortic aneurysm. No aortic dissection. Lungs: Minimal bibasilar atelectasis. Pleural spaces: Unremarkable. No pneumothorax. No pleural effusion. Heart: Unremarkable. No cardiomegaly. No pericardial effusion. Coronary arteries: Moderate atherosclerotic disease of the left anterior descending coronary artery. Lymph nodes: Unremarkable. No enlarged lymph nodes. Adrenal glands: 2.1 cm hypodense left adrenal nodule (series 5, image 110), not significantly changed, most compatible with benign adenoma. Bones/joints: No acute thoracic abnormality. Multilevel thoracic spine degenerative disc space narrowing and osteophyte formation. Soft tissues: Unremarkable. IMPRESSION: No acute thoracic abnormality.
[2023-09-15] MEDS: IPRATROPIUM/ALBUTEROL 3 ML NEB IH (21:58)
[2023-09-15 22:06] LABS: Adenovirus,PCR Not Detected (NotDetected); Coronavirus 19, PCR Not Detected (NotDetected); Coronavirus 229E Not Detected (NotDetected); Coronavirus NL63 Not Detected (NotDetected); Coronavirus OC43 Not Detected (NotDetected); Coronovirus HKU1,PCR Not Detected (NotDetected); Human Metapneumovirus Not Detected (NotDetected); Influenza A, PCR Not Detected (NotDetected); Influenza AH1, 2009 Not Detected (NotDetected); Influenza AH1, PCR Not Detected (NotDetected); Influenza AH3,PCR Not Detected (NotDetected); Influenza B, PCR Not Detected (NotDetected); Parainfluenza 1, PCR Not Detected (NotDetected); Parainfluenza 2, PCR Not Detected (NotDetected); Parainfluenza 3, PCR Not Detected (NotDetected); Parainfluenza 4, PCR Not Detected (NotDetected); Respiratory Syncytial Virus Not Detected (NotDetected); Rhinovirus/Enterovirus Not Detected (NotDetected)
[2023-09-15 22:15] LABS: Lymphocytes % 8 % (10-50); Monocytes % 1 % (2-9); Neutrophils % 91 % (42-76); Platelet Estimate Normal; RBC Morphology Normal; Total Cells Counted 100
[2023-09-15 22:17] LABS: Strep Scrn Group A (Rapid) Negative (Negative)
[2023-09-15 22:19] LABS: INR 1.01 (0.9-1.1); Prothrombin Time 10.9 seconds (10.1-12.5)
[2023-09-15] MEDS: 0.9 % SODIUM CHLORIDE 50 ML VIAL IV (22:25)
[2023-09-15] MEDS: SODIUM CHLORIDE 0.9% 10ML SYR (RAD ONLY) 10 ML IV (22:25)
[2023-09-15] MEDS: IOPAMIDOL-370 (76%);100ML BOTTLE 70 ML IV (22:25)
[2023-09-15 22:29] LABS: VBG Base Excess -1.4 mmol/L (-2.4-2.3); VBG HCO3 22.8 mmol/L (23-30); VBG Oxygen Saturation 98.1 % (50-70); VBG PCO2 34.7 mmol/L (35-51); VBG PH 7.44 mmol/L (7.31-7.41); VBG PO2 105.6 mmol/L (28-40); VBG Total CO2 23.9 mmol/L (23-27)
--- NOTE | 2023-09-15 22:40 | ECG_ITS ---
APPROVED REPORT Exam: Resting ECG HR:118 bpm ECG Measurements Heart Rate 118 AXES IN 184 P 41 QRSd 111 QRS 21 QT 337 T 18 QTc 407 Conclusion SINUS TACHYCARDIA LOW QRS VOLTAGE IN PRECORDIAL LEADS [QRS DEFLECTION < 1.0 mV IN CHEST LEADS] MODERATE INTRAVENTRICULAR CONDUCTION DELAY [110+ ms QRS DURATION] ABNORMAL RHYTHM ECG UNCONFIRMED REPORT Electronically signed by : Nelson Wyatt, 09/16/2023 22:52:35
[2023-09-15 22:46] LABS: NT Pro Brain Natriuretic Pep. 422 pg/mL (0-125)
[2023-09-15] MEDS: DEXAMETHASONE 4MG/ML 1ML VIAL 10 MG IV (22:49)
[2023-09-15] MEDS: LACTATED RINGERS 1000ML 1,000 ML 150 ML IV (22:49)
[2023-09-15 22:55] LABS: Troponin I < 0.01 ng/ml (0.00-0.034)
[2023-09-16] VITALS (13 sets, daily range): BP systolic 101–124; BP diastolic 62–82; PULSE 76–96; RESP 16–20; TEMP 36.6; O2SAT 92–97
--- NOTE | 2023-09-16 00:45 | PC.NURSE ---
Dr Quintana is on the phone with Evans the Hospitalist about the pt. CR
--- NOTE | 2023-09-16 00:52 | PC.NURSE ---
notified housecalls nurse of admission
[2023-09-16] MEDS: VANCOMYCIN CONSULT REQUEST 1 EACH NOTAPPLIC (00:56)
[2023-09-16] MEDS: PIPERACILLIN/TAZO 4.5 GM in 0.9 % SODIUM CHLORIDE 100 ML IV ×2 (01:02→08:19)
[2023-09-16 01:14] LABS: Hemoglobin A1C 7.9 % (4.0-6.0)
--- NOTE | 2023-09-16 01:17 | PC.NURSE ---
[facility] patient will be boarding
[2023-09-16] MEDS: VANCOMYCIN HCL 1,000 MG in 0.9 % SODIUM CHLORIDE 250 ML 125 MG IV (01:32)
--- NOTE | 2023-09-16 01:33 | EXP.HP ---
History of Present Illness *Admission Date: 09/16/23 *Reason for visit:: Hypoxia *History of present illness: 53 year old female presented to [facility] for c/o fevers since Saturday. PMHX of poorly controlled DM and HTN. The pt denies SOB, nausea, or vomiting. She reports that she has been under a lot of stress due to her being ill recently. The pt also states that last week she felt that she had a UTI. She was having dysuria and increased frequency. Due to her the stress in her life she did not seek treatment and ignored the symptoms. In the ED, she is requiring 2L of oxygen to maintain at saturation above 92%. Her ED workup revealed Na of 127, glucose of 363, pH of 7.44 and pCo2 of 34.7 on the VBG. Her D-dimer was elevated to 1.13. A CTA of the chest was obtained and demonstrated no P.E, pleural effusion, or pneumothorax. There is bibasilar atelectasis. She was started on IV zoysn and vancomycin. Blood cultures are pending. The ED physician consulted the hospitalist team for further medical management. I have admitted the pt to the hospitalist service. She is currently in the ED still. Upon my admission exam she is in no acute distress. Will plan to obtain a UA and continue broad spectrum antibiotic coverage. [facility] Disclaimer: The information contained in this section may have been updated after the patient was seen, as this information can be updated by other users. Medical History Diabetes mellitus, type 2 Depression Anxiety Hypoxic respiratory failure Arthritis Hypertension Surgical History History of Family History Mother Cancer Diabetes Hypertension Grandmother Cancer Coronary artery disease Diabetes Hypertension Social History (Updated 09/16/23 @ 14:04 by Laya Gama RN) Smoking Status: Never smoker alcohol intake: never substance use type: denies use current occupational status: employed Travel in the last 8 weeks: None household members: spouse, children and other housing: house Review of Systems Review of Systems Review of systems:: pertinent systems reviewed and negative unless documented below Meds Home Medications and Allergies Home Medications Medication Instructions Recorded Confirmed Type amlodipine 10 mg tablet (Norvasc) 10 mg PO DAILY high blood pressure 09/26/22 09/16/23 Rx #90 tabs hydrochlorothiazide 25 mg tablet 25 mg PO DAILY #90 tabs 09/26/22 09/16/23 Rx hydroxyzine HCl 10 mg tablet 10 mg PO HS #30 tabs 06/07/23 09/16/23 Rx escitalopram oxalate 20 mg tablet 20 mg PO DAILY #90 tabs 08/09/23 09/16/23 Rx (Lexapro) glipizide 5 mg tablet, extended 5 mg PO DAILY Diabetes #90 tabs 09/02/23 09/16/23 Rx release 24 hr amoxicillin 875 mg-potassium 1 tab PO BID 4 days #8 tabs 09/16/23 Rx clavulanate 125 mg tablet insulin glargine 100 unit/mL (3 22 unit (0.22 mL) SQ HS 30 days 09/16/23 Rx mL) subcutaneous pen #15 mL lisinopril 10 mg tablet 10 mg PO DAILY 09/16/23 09/16/23 History metformin 500 mg tablet,extended 1,000 mg PO BID 09/16/23 09/16/23 History release 24 hr New Prescriptions to Start Prescriptions: amoxicillin-pot clavulanate Nelson Fields insulin glargine Nelson Fields Allergies Allergy/AdvReac Type Severity Reaction Status Date / Time No Known Allergies Allergy Verified 08/09/23 10:09 Exam Data for Last 24 hours Vital signs and Labs for Last 24 Hours: Temp Pulse Resp BP Pulse Ox O2 Del Method O2 Flow Rate 99.4 F 95 H 16 109/70 L 97 Room Air 2 09/15/23 20:25 09/16/23 00:15 09/15/23 20:25 09/16/23 00:15 09/16/23 00:15 09/15/23 20:25 09/16/23 00:00 Laboratory Results - last 24 hr 09/15/23 00:00: Hemoglobin A1c 7.9 H, Thyroxine (T4) 6.0 09/15/23 20:40: SARS-CoV-2 (PCR) Not detected, Influenza A Untype (PCR) Not detected, Influenza Type B (PCR) Not detected 09/15/23 21:20: WBC 9.5, RBC 3.54 L, Hgb 11.2 L, Hct 34.4 L, MCV 97.3, MCH 31.7 H, MCHC 32.5, RDW 13.1, Plt Count 208, MPV 8.0, Neut % (Auto) 89.3 H, Lymph % (Auto) 5.5 L, [place] % (Auto) 4.6, Eos % (Auto) 0.3, Baso % (Auto) 0.4, Neut # (Auto) 8.5 H, Lymph # (Auto) 0.5 L, [place] # (Auto) 0.4, Eos # (Auto) 0.0, Baso # (Auto) 0.0, Total Counted 100, Neutrophils % (Manual) 91 H, Lymphocytes % (Manual) 8 L, Monocytes % (Manual) 1 L, Platelet Estimate Normal, RBC Morphology Normal, PT 10.9, INR 1.01, D-Dimer 1.13 H, Sodium 127 L, Potassium 3.7, Chloride 96 L, Carbon Dioxide 22, Anion Gap 12.7, BUN 23 H, Creatinine 1.00, Estimated Creat Clear 96, Estimated GFR 58 L, Est GFR ( Amer) 70, Glucose 363 H, Calcium 8.8, Troponin I < 0.01, NT-Pro-B Natriuret Pep 422 H 09/15/23 21:53: Group A Strep Rapid Negative 09/15/23 21:54: VBG pH 7.44 H, VBG pCO2 34.7 L, VBG pO2 105.6 H, VBG HCO3 22.8 L, VBG Total CO2 23.9, VBG O2 Saturation 98.1 H, VBG Base Excess -1.4, VBG Lactic Acid 2.0 09/15/23 21:55: Chlamy pneumoniae PCR TNP, Adenovirus (PCR) Not detected, B. pertussis DNA (PCR) TNP, Coronavirus OC43 (PCR) Not detected, Coronavirus HKU1 (PCR) Not detected, Coronavirus 229E (PCR) Not detected, SARS-CoV-2 (PCR) Not detected, Coronavirus NL63 (PCR) Not detected, Human Metapneumovir PCR Not detected, Influenza A (H1) PCR Not detected, Influ A (H1N1/09) PCR Not detected, Influenza A (H3) PCR Not detected, Influenza Type A (PCR) Not detected, Influenza Type B (PCR) Not detected, M. pneumoniae (PCR) TNP, Parainfluenza 1 (PCR) Not detected, Parainfluenza 2 (PCR) Not detected, Parainfluenza 3 (PCR) Not detected, Parainfluenza 4 (PCR) Not detected, RSV (PCR) Not detected, Entero/Rhino (PCR) Not detected I & O for Last 24 hours: Intake & Output 09/13/23 09/14/23 09/15/23 09/16/23 23:59 23:59 23:59 23:59 Weight 92.986 kg Constitutional Constitutional: no acute distress *Routine HEENT Exam Head: Present normocephalic Eye: Present EOMI ENT: Present mucous membranes moist *Routine Neck Exam Neck: Present full ROM *Routine Respiratory Exam Respiratory: Present wheezes and symmetric chest movement *Routine Cardiovascular Exam Cardiovascular: Present RRR *Routine Abdominal Exam Abdominal: Present soft and normoactive bowel sounds; Absent tenderness *Routine Rectal Exam Rectal:: deferred *Routine Genitalia Exam Genitalia:: deferred *Routine Extremities Exam Extremities: Present full ROM *Routine Skin Exam Skin: Present intact *Routine Neurological Exam Neurological: Present alert and oriented X3 Assessment and Plan *Assessment and plan (1) Hypoxic respiratory failure: Status: Acute Category: Medical Code(s): J96.91 - Respiratory failure, unspecified with hypoxia (2) Hyponatremia: Status: Acute Category: Medical Code(s): E87.1 - Hypo-osmolality and hyponatremia (3) Hyperglycemia: Status: Acute Category: Medical Code(s): R73.9 - Hyperglycemia, unspecified (4) Diabetes mellitus: Status: Acute Qualifiers: Diabetes mellitus complication status: without complication Diabetes mellitus petroleum terminal plant operator insulin use: without petroleum terminal plant operator use Diabetes mellitus type: type 2 Qualified Code(s): E11.9 - Type 2 diabetes mellitus without complications Category: Medical Code(s): E11.9 - Type 2 diabetes mellitus without complications (5) Essential hypertension: Status: Acute Category: Medical Code(s): I10 - Essential (primary) hypertension (6) Obese: Status: Acute Category: Medical Code(s): E66.9 - Obesity, unspecified Plan 53 year old female presented to [facility] for c/o fevers since Saturday. The pt denies SOB, nausea, or vomiting. She reports that she has been under a lot of stress due to her being ill recently. The pt also states that last week she felt that she had a UTI. She was having dysuria and increased frequency. Due to her the stress in her life she did not seek treatment and ignored the symptoms. She was started on IV zoysn and vancomycin in the ED. Blood cultures are pending. The ED physician consulted the hospitalist team for further medical management. I have admitted the pt to the hospitalist service. She is currently in the ED still. Upon my admission exam she is in no acute distress. Will plan to obtain a UA and urine culture. I will continue broad spectrum antibiotic coverage. I will treat hyperglycemia and monitor sodium levels with sliding scale insulin and repeat BMP's. HYPOXIC RESPIRATORY FAILURE -pH of 7.44 and pCo2 of 34.7 on the VBG -New oxygen requirement of 2L. Maintain 02 above 92% -CTA of the chest was obtained and demonstrated no P.E, pleural effusion, or pneumothorax. There is bibasilar atelectasis. -Bilateral wheezing auscultated throughout lungs. -Continue IV Vancomycin daily and Zoysn 4.5mg q 8 hr -UA, urine culture, and blood cultures pending -respiratory panel pending HYPONATREMIA HYPERGLYCEMIA DM -Na of 127 and glucose of 363 -Corrected Na is 131 -start SSI insulin -Repeat bmp this morning to monitor Na -A1c pending HTN-awaiting home med req OBESE-complicates all aspects of care FULL CODE DIABETIC DIET DVT: HEPARIN SQ Rounded on patient after nurse practitioner. Personally examined and interviewed patient. Agree with exam findings and care plan as documented.
[2023-09-16 01:38] LABS: Thyroid Stimulating Hormone 0.98 uIU/mL (0.465-4.68)
[2023-09-16] MEDS: humaLOG 100 UNITS/ML 3ML VIAL (SSI) SQ ×3 (01:40→11:50)
[2023-09-16 02:14] LABS: Troponin I < 0.01 ng/ml (0.00-0.034)
--- NOTE | 2023-09-16 03:36 | PC.NURSE ---
pt ambulated to bathroom. call light within reach
[2023-09-16 04:58] LABS: Basophils % 0.2 % (0.1-2.0); Eosinophils % 0.1 % (0.1-12.0); Hematocrit 33.9 % (37.0-47.0); Hemoglobin 10.8 g/dL (12.2-16.2); Lymphocytes # 0.4 K/mm3 (0.7-4.5); Lymphocytes % 4.1 % (10-50); Mean Corpuscular HGB Conc 31.9 g/dL (31.8-35.4); Mean Corpuscular Hemoglobin 31.5 pg (27.0-31.2); Mean Corpuscular Volume 98.5 fl (81-99); Mean Platelet Volume 7.8 fl (7.4-10.4); Monocytes # 0.2 K/mm3 (0.1-1.0); Monocytes % 1.8 % (1.7-9.3); Neutrophils # 8.4 K/mm3 (1.8-7.8); Neutrophils % 93.7 % (37.0-80.0); Platelet Count 222 K/mm3 (142-424); Red Blood Count 3.44 M/mm3 (4.20-5.40); Red Cell Distribution Width 13.1 % (11.5-17.5)
[2023-09-16 05:05] LABS: Chloride 101 mmol/L (98-107)
[2023-09-16 05:06] LABS: Potassium 3.8 mmoL/L (3.5-5.1); Sodium 130 mmol/L (136-145)
[2023-09-16 05:08] LABS: Blood Urea Nitrogen 21 mg/dl (7-17); Creatinine Clearance Estimated 96 mL/min (50-200); Estimated Glomerular Filt Rate 58 ml/min (>60); GFR (African American) 70 ML/MIN (>60)
[2023-09-16 05:09] LABS: Anion Gap 7.8 mEq/L (5-15); Calcium 8.9 mg/dl (8.4-10.2); Carbon Dioxide 25 mmol/L (22.0-30.0); Glucose 375 mg/dl (74-100)
[2023-09-16 05:42] LABS: Troponin I < 0.01 ng/ml (0.00-0.034)
--- NOTE | 2023-09-16 07:30 | PC.NURSE ---
Pt sitting up in bed eating breakfast. No other needs voiced at this time. Call light remains within reach.
[2023-09-16] MEDS: FUROSEMIDE 40MG/4ML VIAL 40 MG IV (07:32)
[2023-09-16] MEDS: HEPARIN SODIUM 5,000 UNIT/ML VIAL 5000 UNIT SQ (08:20)
--- NOTE | 2023-09-16 08:26 | PC.NURSE ---
pt is sitting on the side of the bed facetiming her son. saturation currently @ 94% on 2lnc
--- NOTE | 2023-09-16 08:57 | PC.NURSE ---
pt currently 93% on ra
--- NOTE | 2023-09-16 08:58 | PC.NURSE ---
Dr Fields @ bedside
[2023-09-16 10:55] LABS: Microscopic, Urine URINE MICROSCOPIC (MICROSCOPIC)
[2023-09-16 11:03] LABS: Appearance,Urine CLEAR (Clear); Bilirubin,Urine Negative (Negative); Blood, Urine TRACE-I (Negative); Color,Urine YELLOW (Yellow); Glucose,Urine (UA) 3+ (Negative); Ketones,Urine Negative (Negative); Leukocyte Esterase,Urine TRACE (Negative); Nitrate,Urine Negative (Negative); Protein,Urine Negative (Negative); Urobilinogen,Urine 0.2 EU/dl (0.2)
--- NOTE | 2023-09-16 11:30 | PC.NURSE ---
fsbs [phone]
--- NOTE | 2023-09-16 11:32 | PC.NURSE ---
pt has not taken her medications for two days. contacted Dr Fields. awaiting a call back regarding fsbs of [phone]
[2023-09-16 11:35] LABS: Bacteria,Urine Trace /lpf; RBC,Urine Occasional #/hpf (0-3); Squamous Epithelial Cell,Urine Occasional #/hpf (0-5)
--- NOTE | 2023-09-16 11:48 | PC.NURSE ---
will give 20u per md and recheck
--- NOTE | 2023-09-16 12:23 | PC.NURSE ---
ROunded on pt. NO needs voiced at this time. Visitor at BS and call light within reach.
--- NOTE | 2023-09-16 12:32 | EXP.DC.SUM ---
General Admission date:: 09/16/23 Discharge date: 09/16/23 HPI HPI HPI: 53 year old female presented to [facility] for c/o fevers since Saturday. PMHX of poorly controlled DM and HTN. The pt denies SOB, nausea, or vomiting. She reports that she has been under a lot of stress due to her being ill recently. The pt also states that last week she felt that she had a UTI. She was having dysuria and increased frequency. Due to her the stress in her life she did not seek treatment and ignored the symptoms. In the ED, she is requiring 2L of oxygen to maintain at saturation above 92%. Her ED workup revealed Na of 127, glucose of 363, pH of 7.44 and pCo2 of 34.7 on the VBG. Her D-dimer was elevated to 1.13. A CTA of the chest was obtained and demonstrated no P.E, pleural effusion, or pneumothorax. There is bibasilar atelectasis. She was started on IV zoysn and vancomycin. Blood cultures are pending. The ED physician consulted the hospitalist team for further medical management. I have admitted the pt to the hospitalist service. She is currently in the ED still. Upon my admission exam she is in no acute distress. Will plan to obtain a UA and continue broad spectrum antibiotic coverage. Hospital Course Hospital Course Hospital Course: 53 year old female presented to [facility] for c/o fevers since Saturday. The pt denies SOB, nausea, or vomiting. She reports that she has been under a lot of stress due to her being ill recently. The pt also states that last week she felt that she had a UTI. She was having dysuria and increased frequency. Due to her the stress in her life she did not seek treatment and ignored the symptoms. She was started on IV zoysn and vancomycin in the ED. Blood cultures are pending. The ED physician consulted the hospitalist team for further medical management. I have admitted the pt to the hospitalist service. She is currently in the ED still. Upon my admission exam she is in no acute distress. Will plan to obtain a UA and urine culture. I will continue broad spectrum antibiotic coverage. I will treat hyperglycemia and monitor sodium levels with sliding scale insulin and repeat BMP's. HYPOXIC RESPIRATORY FAILURE -pH of 7.44 and pCo2 of 34.7 on the VBG. New oxygen requirement of 2L. Maintain 02 above 92%. CTA of the chest was obtained and demonstrated no P.E, pleural effusion, or pneumothorax. There is bibasilar atelectasis. Initiated on antibiotics. Respiratory panel negative. Concern for hyperglycemia and component of some volume overload given BNP in the 400s. Diurese x 1 with Lasix 40 mg IV. Patient with -600 cc but time of discharge. Breathing better, able to wean to room air. Sats maintained in the mid 90s. Given her lack of focal consolidation, response to diuretic, low concern for pneumonia. Stable to discharge home. HYPONATREMIA HYPERGLYCEMIA DM -Na of 127 and glucose of 363 on admission. A1c obtained 7.9. Sodium was monitored, improved to 131 with diuresis and treatment of her diabetes. Recommend adjusting diabetes regimen with continuing glipizide 5 mg newly metformin at 1000 mg twice daily, and increase of insulin to 2 units nightly. Recommend close follow-up with PCP for further management HTN-continue home amlodipine 10 mg daily and lisinopril 10 mg daily Depression/anxiety: Continue Lexapro 20 mg daily Stable for Discharge home, recommend close follow-up with PCP and encouraged to adhere to her own medication regimen for self-care. Exam Data for Last 24 hours Vital signs and Labs for Last 24 Hours: Temp Pulse Resp BP Pulse Ox O2 Del Method O2 Flow Rate 99.4 F 85 20 124/62 92 L Room Air 2 09/15/23 20:25 09/16/23 08:00 09/16/23 08:00 09/16/23 08:00 09/16/23 09:16 09/16/23 09:16 09/16/23 06:30 Laboratory Results - last 24 hr 09/15/23 20:40: SARS-CoV-2 (PCR) Not detected, Influenza A Untype (PCR) Not detected, Influenza Type B (PCR) Not detected 09/15/23 21:20: WBC 9.5, RBC 3.54 L, Hgb 11.2 L, Hct 34.4 L, MCV 97.3, MCH 31.7 H, MCHC 32.5, RDW 13.1, Plt Count 208, MPV 8.0, Neut % (Auto) 89.3 H, Lymph % (Auto) 5.5 L, [place] % (Auto) 4.6, Eos % (Auto) 0.3, Baso % (Auto) 0.4, Neut # (Auto) 8.5 H, Lymph # (Auto) 0.5 L, [place] # (Auto) 0.4, Eos # (Auto) 0.0, Baso # (Auto) 0.0, Total Counted 100, Neutrophils % (Manual) 91 H, Lymphocytes % (Manual) 8 L, Monocytes % (Manual) 1 L, Platelet Estimate Normal, RBC Morphology Normal, PT 10.9, INR 1.01, D-Dimer 1.13 H, Sodium 127 L, Potassium 3.7, Chloride 96 L, Carbon Dioxide 22, Anion Gap 12.7, BUN 23 H, Creatinine 1.00, Estimated Creat Clear 96, Estimated GFR 58 L, Est GFR ( Amer) 70, Glucose 363 H, Hemoglobin A1c 7.9 H, Calcium 8.8, Troponin I < 0.01, NT-Pro-B Natriuret Pep 422 H, TSH 0.98, Thyroxine (T4) 6.0 09/15/23 21:53: Group A Strep Rapid Negative 09/15/23 21:54: VBG pH 7.44 H, VBG pCO2 34.7 L, VBG pO2 105.6 H, VBG HCO3 22.8 L, VBG Total CO2 23.9, VBG O2 Saturation 98.1 H, VBG Base Excess -1.4, VBG Lactic Acid 2.0 09/15/23 21:55: Chlamy pneumoniae PCR TNP, Adenovirus (PCR) Not detected, B. pertussis DNA (PCR) TNP, Coronavirus OC43 (PCR) Not detected, Coronavirus HKU1 (PCR) Not detected, Coronavirus 229E (PCR) Not detected, SARS-CoV-2 (PCR) Not detected, Coronavirus NL63 (PCR) Not detected, Human Metapneumovir PCR Not detected, Influenza A (H1) PCR Not detected, Influ A (H1N1/09) PCR Not detected, Influenza A (H3) PCR Not detected, Influenza Type A (PCR) Not detected, Influenza Type B (PCR) Not detected, M. pneumoniae (PCR) TNP, Parainfluenza 1 (PCR) Not detected, Parainfluenza 2 (PCR) Not detected, Parainfluenza 3 (PCR) Not detected, Parainfluenza 4 (PCR) Not detected, RSV (PCR) Not detected, Entero/Rhino (PCR) Not detected 09/16/23 01:40: Troponin I < 0.01 09/16/23 04:50: WBC 9.0, RBC 3.44 L, Hgb 10.8 L, Hct 33.9 L, MCV 98.5, MCH 31.5 H, MCHC 31.9, RDW 13.1, Plt Count 222, MPV 7.8, Neut % (Auto) 93.7 H, Lymph % (Auto) 4.1 L, [place] % (Auto) 1.8, Eos % (Auto) 0.1, Baso % (Auto) 0.2, Neut # (Auto) 8.4 H, Lymph # (Auto) 0.4 L, [place] # (Auto) 0.2, Eos # (Auto) 0.0, Baso # (Auto) 0.0, Sodium 130 L, Potassium 3.8, Chloride 101, Carbon Dioxide 25, Anion Gap 7.8, BUN 21 H, Creatinine 1.00, Estimated Creat Clear 96, Estimated GFR 58 L, Est GFR ( Amer) 70, Glucose 375 H, Calcium 8.9, Troponin I < 0.01 09/16/23 10:53: Urine Color Yellow, Urine Appearance Clear, Urine pH 6.0, Ur Specific Gregory 1.010, Urine Protein Negative, Urine Glucose (UA) 3+, Urine Ketones Negative, Urine Blood Trace-i, Urine Nitrate Negative, Urine Bilirubin Negative, Urine Urobilinogen 0.2, Ur Leukocyte Esterase Trace, Urine RBC Occasional, Urine WBC 3-5, Ur Squamous Epith Cells Occasional, Urine Bacteria Trace I & O for Last 24 hours: Intake & Output 09/13/23 09/14/23 09/15/23 09/16/23 23:59 23:59 23:59 23:59 Output Total 600 / 600 Balance -600 / -600 Weight 92.986 kg Constitutional Constitutional: no acute distress, obese and cooperative *Routine HEENT Exam Head: Present normocephalic Eye: Present EOMI and PERRL ENT: Present mucous membranes moist *Routine Neck Exam Neck: Present supple; Absent lymphadenopathy *Routine Respiratory Exam Respiratory: Present CTA bilaterally; Absent rhonchi, wheezes or crackles *Routine Cardiovascular Exam Cardiovascular: Present RRR *Routine Abdominal Exam Abdominal: Present soft and normoactive bowel sounds; Absent tenderness *Routine Rectal Exam Patient deferred: visual exam *Routine Exam Patient deferred: external exam *Routine Extremities Exam Extremities: Absent cyanosis, clubbing or edema *Routine Skin Exam Skin: Present warm; Absent rash *Routine Neurological Exam Neurological: Present alert, oriented X3 and moving all extremities; Absent altered mental status Results Data Completed and Pending Labs on day of discharge: Labs from last 24 hours 09/16/23 09/16/23 09/16/23 10:53 04:50 01:40 WBC 9.0 RBC 3.44 L Hgb 10.8 L Hct 33.9 L MCV 98.5 MCH 31.5 H MCHC 31.9 RDW 13.1 Plt Count 222 MPV 7.8 Neut % (Auto) 93.7 H Lymph % (Auto) 4.1 L [place] % (Auto) 1.8 Eos % (Auto) 0.1 Baso % (Auto) 0.2 Neut # (Auto) 8.4 H Lymph # (Auto) 0.4 L [place] # (Auto) 0.2 Eos # (Auto) 0.0 Baso # (Auto) 0.0 Total Counted Neutrophils % (Manual) Lymphocytes % (Manual) Monocytes % (Manual) Platelet Estimate RBC Morphology PT INR D-Dimer VBG pH VBG pCO2 VBG pO2 VBG HCO3 VBG Total CO2 VBG O2 Saturation VBG Base Excess VBG Lactic Acid Sodium 130 L Potassium 3.8 Chloride 101 Carbon Dioxide 25 Anion Gap 7.8 BUN 21 H Creatinine 1.00 Estimated Creat Clear 96 Estimated GFR 58 L Est GFR ( Amer) 70 Glucose 375 H Hemoglobin A1c Calcium 8.9 Troponin I < 0.01 < 0.01 NT-Pro-B Natriuret Pep TSH Thyroxine (T4) Urine Color Yellow Urine Appearance Clear Urine pH 6.0 Ur Specific Gregory 1.010 Urine Protein Negative Urine Glucose (UA) 3+ Urine Ketones Negative Urine Blood Trace-i Urine Nitrate Negative Urine Bilirubin Negative Urine Urobilinogen 0.2 Ur Leukocyte Esterase Trace Urine RBC Occasional Urine WBC 3-5 Ur Squamous Epith Cells Occasional Urine Bacteria Trace Chlamy pneumoniae PCR Adenovirus (PCR) B. pertussis DNA (PCR) Coronavirus OC43 (PCR) Coronavirus HKU1 (PCR) Coronavirus 229E (PCR) SARS-CoV-2 (PCR) Coronavirus NL63 (PCR) Human Metapneumovir PCR Influenza A (H1) PCR Influ A (H1N1/09) PCR Influenza A (H3) PCR Influenza Type A (PCR) Influenza A Untype (PCR) Influenza Type B (PCR) M. pneumoniae (PCR) Parainfluenza 1 (PCR) Parainfluenza 2 (PCR) Parainfluenza 3 (PCR) Parainfluenza 4 (PCR) RSV (PCR) Entero/Rhino (PCR) Group A Strep Rapid 09/15/23 09/15/23 09/15/23 21:55 21:54 21:53 WBC RBC Hgb Hct MCV MCH MCHC RDW Plt Count MPV Neut % (Auto) Lymph % (Auto) [place] % (Auto) Eos % (Auto) Baso % (Auto) Neut # (Auto) Lymph # (Auto) [place] # (Auto) Eos # (Auto) Baso # (Auto) Total Counted Neutrophils % (Manual) Lymphocytes % (Manual) Monocytes % (Manual) Platelet Estimate RBC Morphology PT INR D-Dimer VBG pH 7.44 H VBG pCO2 34.7 L VBG pO2 105.6 H VBG HCO3 22.8 L VBG Total CO2 23.9 VBG O2 Saturation 98.1 H VBG Base Excess -1.4 VBG Lactic Acid 2.0 Sodium Potassium Chloride Carbon Dioxide Anion Gap BUN Creatinine Estimated Creat Clear Estimated GFR Est GFR ( Amer) Glucose Hemoglobin A1c Calcium Troponin I NT-Pro-B Natriuret Pep TSH Thyroxine (T4) Urine Color Urine Appearance Urine pH Ur Specific Gregory Urine Protein Urine Glucose (UA) Urine Ketones Urine Blood Urine Nitrate Urine Bilirubin Urine Urobilinogen Ur Leukocyte Esterase Urine RBC Urine WBC Ur Squamous Epith Cells Urine Bacteria Chlamy pneumoniae PCR TNP Adenovirus (PCR) Not detected B. pertussis DNA (PCR) TNP Coronavirus OC43 (PCR) Not detected Coronavirus HKU1 (PCR) Not detected Coronavirus 229E (PCR) Not detected SARS-CoV-2 (PCR) Not detected Coronavirus NL63 (PCR) Not detected Human Metapneumovir PCR Not detected Influenza A (H1) PCR Not detected Influ A (H1N1/09) PCR Not detected Influenza A (H3) PCR Not detected Influenza Type A (PCR) Not detected Influenza A Untype (PCR) Influenza Type B (PCR) Not detected M. pneumoniae (PCR) TNP Parainfluenza 1 (PCR) Not detected Parainfluenza 2 (PCR) Not detected Parainfluenza 3 (PCR) Not detected Parainfluenza 4 (PCR) Not detected RSV (PCR) Not detected Entero/Rhino (PCR) Not detected Group A Strep Rapid Negative 09/15/23 09/15/23 21:20 20:40 WBC 9.5 RBC 3.54 L Hgb 11.2 L Hct 34.4 L MCV 97.3 MCH 31.7 H MCHC 32.5 RDW 13.1 Plt Count 208 MPV 8.0 Neut % (Auto) 89.3 H Lymph % (Auto) 5.5 L [place] % (Auto) 4.6 Eos % (Auto) 0.3 Baso % (Auto) 0.4 Neut # (Auto) 8.5 H Lymph # (Auto) 0.5 L [place] # (Auto) 0.4 Eos # (Auto) 0.0 Baso # (Auto) 0.0 Total Counted 100 Neutrophils % (Manual) 91 H Lymphocytes % (Manual) 8 L Monocytes % (Manual) 1 L Platelet Estimate Normal RBC Morphology Normal PT 10.9 INR 1.01 D-Dimer 1.13 H VBG pH VBG pCO2 VBG pO2 VBG HCO3 VBG Total CO2 VBG O2 Saturation VBG Base Excess VBG Lactic Acid Sodium 127 L Potassium 3.7 Chloride 96 L Carbon Dioxide 22 Anion Gap 12.7 BUN 23 H Creatinine 1.00 Estimated Creat Clear 96 Estimated GFR 58 L Est GFR ( Amer) 70 Glucose 363 H Hemoglobin A1c 7.9 H Calcium 8.8 Troponin I < 0.01 NT-Pro-B Natriuret Pep 422 H TSH 0.98 Thyroxine (T4) 6.0 Urine Color Urine Appearance Urine pH Ur Specific Gregory Urine Protein Urine Glucose (UA) Urine Ketones Urine Blood Urine Nitrate Urine Bilirubin Urine Urobilinogen Ur Leukocyte Esterase Urine RBC Urine WBC Ur Squamous Epith Cells Urine Bacteria Chlamy pneumoniae PCR Adenovirus (PCR) B. pertussis DNA (PCR) Coronavirus OC43 (PCR) Coronavirus HKU1 (PCR) Coronavirus 229E (PCR) SARS-CoV-2 (PCR) Not detected Coronavirus NL63 (PCR) Human Metapneumovir PCR Influenza A (H1) PCR Influ A (H1N1/09) PCR Influenza A (H3) PCR Influenza Type A (PCR) Influenza A Untype (PCR) Not detected Influenza Type B (PCR) Not detected M. pneumoniae (PCR) Parainfluenza 1 (PCR) Parainfluenza 2 (PCR) Parainfluenza 3 (PCR) Parainfluenza 4 (PCR) RSV (PCR) Entero/Rhino (PCR) Group A Strep Rapid DS: Diagnosis Discharge Diagnosis (1) Hypoxic respiratory failure: Status: Acute Code(s): J96.91 - Respiratory failure, unspecified with hypoxia (2) Hyponatremia: Status: Acute Code(s): E87.1 - Hypo-osmolality and hyponatremia (3) Hyperglycemia: Status: Acute Code(s): R73.9 - Hyperglycemia, unspecified (4) Diabetes mellitus: Status: Acute Code(s): E11.9 - Type 2 diabetes mellitus without complications Qualifiers: Diabetes mellitus complication status: without complication Diabetes mellitus assisted insulin use: without intermodal customer service use Diabetes mellitus type: type 2 Qualified Code(s): E11.9 - Type 2 diabetes mellitus without complications (5) Essential hypertension: Status: Acute Code(s): I10 - Essential (primary) hypertension (6) Obese: Status: Acute Code(s): E66.9 - Obesity, unspecified Meds Home Medications and Allergies Home Medications Medication Instructions Recorded Confirmed Type amlodipine 10 mg tablet (Norvasc) 10 mg PO DAILY high blood pressure 09/26/22 09/16/23 Rx #90 tabs hydrochlorothiazide 25 mg tablet 25 mg PO DAILY #90 tabs 09/26/22 09/16/23 Rx hydroxyzine HCl 10 mg tablet 10 mg PO HS #30 tabs 06/07/23 09/16/23 Rx escitalopram oxalate 20 mg tablet 20 mg PO DAILY #90 tabs 08/09/23 09/16/23 Rx (Lexapro) glipizide 5 mg tablet, extended 5 mg PO DAILY Diabetes #90 tabs 09/02/23 09/16/23 Rx release 24 hr amoxicillin 875 mg-potassium 1 tab PO BID 4 days #8 tabs 09/16/23 Rx clavulanate 125 mg tablet insulin glargine 100 unit/mL (3 22 unit (0.22 mL) SQ HS 30 days 09/16/23 Rx mL) subcutaneous pen #15 mL lisinopril 10 mg tablet 10 mg PO DAILY 09/16/23 09/16/23 History metformin 500 mg tablet,extended 1,000 mg PO BID 09/16/23 09/16/23 History release 24 hr New Prescriptions to Start Prescriptions: amoxicillin-pot clavulanate [place] insulin glargine [place] [facility] Allergies Allergy/AdvReac Type Severity Reaction Status Date / Time No Known Allergies Allergy Verified 08/09/23 10:09 Discharge Plan Disposition Patient Disposition: Admitted Condition: Fair Prescriptions Prescriptions: New amoxicillin-pot clavulanate 875-125 mg tablet 1 tab PO BID 4 Days Qty: 8 0RF Continued hydroxyzine HCl 10 mg tablet 10 mg PO HS Qty: 30 2RF escitalopram oxalate [Lexapro] 20 mg tablet 20 mg PO DAILY Qty: 90 1RF amlodipine [Norvasc] 10 mg tablet 10 mg PO DAILY Qty: 90 3RF hydrochlorothiazide 25 mg tablet 25 mg PO DAILY Qty: 90 3RF glipizide 5 mg tablet extended release 24hr 5 mg PO DAILY Qty: 90 0RF Patient Comments: TAKE 1 TABLET BY MOUTH ONCE DAILY lisinopril 10 mg tablet 10 mg PO DAILY metformin 500 mg tablet extended release 24 hr 1,000 mg PO BID Changed insulin glargine 100 unit/mL (3 mL) insulin pen 22 unit SQ HS 30 Days Qty: 15 2RF Referrals Follow up/Referrals: Dago Matthews MD [Primary Care Provider] - Enter time for follow up Clinical Impressions Clinical Impression: Tachycardia, Hypoxia, Myalgia, Cough Stand Alone Forms Stand Alone Forms: Work/School Release Instructions Patient Instructions: DI for Respiratory Failure, DI for Hypoxia Discharge ED Provider: Shirley Miller
--- NOTE | 2023-09-16 13:35 | PC.NURSE ---
Rounded on patient. No needs at this time.
--- NOTE | 2023-09-16 14:39 | HMH.PHAINT1 ---
Pharmacy Intervention Comments: home medication list verified using list from outpatient pharmacy
[2023-09-16 14:48] LABS: Chloride 97 mmol/L (98-107); Sodium 131 mmol/L (136-145)
[2023-09-16 14:49] LABS: Potassium 3.7 mmoL/L (3.5-5.1)
[2023-09-16 14:51] LABS: Blood Urea Nitrogen 27 mg/dl (7-17); Creatinine Clearance Estimated 96 mL/min (50-200); Estimated Glomerular Filt Rate 58 ml/min (>60); GFR (African American) 70 ML/MIN (>60)
[2023-09-16 14:52] LABS: Anion Gap 10.7 mEq/L (5-15); Calcium 9.1 mg/dl (8.4-10.2); Carbon Dioxide 27 mmol/L (22.0-30.0)
[2023-09-16 14:54] LABS: Glucose 403 mg/dl (74-100)
--- NOTE | 2023-09-16 15:09 | PC.NURSE ---
94% on RA @ rest
== END 2023-09-16 15:45 | disposition admitted as inpatient to this hospital (09) ==
LOC: ER 09-16 00:51 → 2ND 09-16 07:49 → ER 09-16 15:38
PROVIDERS: Internal Medicine Adolescent Medicine; Physician Assistant; Student in an Organized Health Care Education/Training Program; Emergency Provider Emergency Medicine; PCP Family Medicine; Visit Provider Nurse Practitioner Critical Care Medicine
DX: J96.01 Acute respiratory failure with hypoxia; E87.1 Hypo-osmolality and hyponatremia; R51.9 Headache, unspecified; R42 Dizziness and giddiness; R50.9 Fever, unspecified; R11.0 Nausea; R53.1 Weakness; R05.9 Cough, unspecified; I10 Essential (primary) hypertension; R00.0 Tachycardia, unspecified
CPT/HCPCS: 36415; 71045; 71275; 80048; 81001; 82803; 83036; 83880; 84436; 84443; 84484; 85007; 85025; 85378; 85610; 87040; 87086; 87430; 87632; 87635; 87636; 93005; 96361; 96365; 96372; 96375; 99285; J2543; J3370; Q9967

== ENCOUNTER 2023-11-12 10:31 | Outpatient (CLI) | payer OTHER, SELFPAY ==
[2023-11-12 11:04] LABS: Basophils # 0.1 K/mm3 (0-0.2); Eosinophils # 0.3 K/mm3 (0.0-0.4); Hematocrit 37.6 % (37.0-47.0); Hemoglobin 12.4 g/dL (12.2-16.2); Mean Corpuscular Hemoglobin 31.2 pg (27.0-31.2); Mean Corpuscular Volume 94.5 fl (81-99); Mean Platelet Volume 7.6 fl (7.4-10.4); Monocytes # 0.2 K/mm3 (0.1-1.0); Monocytes % 3.6 % (1.7-9.3); Neutrophils # 3.7 K/mm3 (1.8-7.8); Neutrophils % 59.5 % (37.0-80.0); Platelet Count 298 K/mm3 (142-424); Red Blood Count 3.98 M/mm3 (4.20-5.40); Red Cell Distribution Width 14.3 % (11.5-17.5); White Blood Count 6.2 K/mm3 (4.8-10.8)
[2023-11-12 11:37] LABS: Alanine Aminotransferase 21 U/L (12-78); Albumin Level 4.2 g/dl (3.5-5.0); Alkaline Phosphatase 62 U/L (38-126); Aspartate Amino Transferase 27 U/L (14-36); Bilirubin,Direct 0.2 mg/dl (0.0-0.4); Bilirubin,Indirect 0.2 mg/dL (0.0-0.9); Bilirubin,Total 0.4 mg/dl (0.2-1.3); Bilirubin,Unconjugated 0.3 mg/dL (0.0-1.1); Blood Urea Nitrogen 20 mg/dl (7-17); Carbon Dioxide 28 mmol/L (22.0-30.0); Chloride 103 mmol/L (98-107); Chol/HDL Ratio 3.8 (1-3.5); Cholesterol 257 mg/dl (140-200); Estimated Glomerular Filt Rate 75 ml/min (>60); GFR (African American) 91 ML/MIN (>60); Glucose 125 mg/dl (74-100); HDL Cholesterol 67 mg/dl (40-60); Magnesium 1.7 mg/dl (1.6-2.3); Sodium 140 mmol/L (136-145); Total Protein,Serum 7.3 g/dl (6.3-8.2); Triglycerides 215 mg/dl (30-150); VLDL Cholesterol 43 mg/dL (0-40)
[2023-11-12 12:06] LABS: Thyroid Stimulating Hormone 0.89 uIU/mL (0.465-4.68)
[2023-11-12 13:40] LABS: Direct LDL Cholesterol 135.09 mg/dL (100-129)
== END 2023-11-12 23:59 | disposition home or self-care (01) ==
LOC: LAB 10:32
PROVIDERS: PCP Family Medicine; Visit Provider Nurse Practitioner
DX: R06.00 Dyspnea, unspecified (principal); R07.9 Chest pain, unspecified; R55 Syncope and collapse; R00.2 Palpitations; I10 Essential (primary) hypertension; E11.9 Type 2 diabetes mellitus without complications; Z79.4 Long term (current) use of insulin
CPT/HCPCS: 36415; 80048; 80061; 80076; 83735; 84439; 84443; 85025; 93270

== ENCOUNTER 2023-11-20 11:08 | Outpatient (CLI) | payer OTHER, SELFPAY ==
--- NOTE | 2023-11-20 | CA_ITS ---
APPROVED REPORT Exam: Pharmacologic Technologist: Tiff Mena Ht: 5 ft 5 in Wt: 206 lbs BSA: 2.00 m2 HR: 78 bpm BP: 166/99 mmHg Indications: Palpitations Medical History Medications: Amlodipine,,,,, Lisinopril,,,,, Metformin,,,,, Lexapro,,,,, HCTZ,,,,, INSULIN,,,,, Hydroxyzine,,,,, NYstatin,,,,, CoDeine-guaifenesin,,,,, Stress Test Details Test: LEXISCAN HR Resting HR: 83 bpm Max Heart Rate (APMHR): 167 bpm Max HR Achieved: 132 bpm Target HR (85% APMHR): 142 bpm % of APMHR: 79 Recovery HR: 98 bpm BP Resting BP: 147.0/99.0 mmHg Max BP: 177.0/105.0 mmHg Recovery BP: 156.0/90.0 mmHg ECG Resting ECG: Normal sinus rhythm, nonspecific ST abnormalities inferiorly and laterally. Stress ECG: No significant ST changes Arrhythmia: None Clinical Exercise duration: 04:00 min Highest Stage Achieved: Exercise capacity: 1.0 METs Stress ECG Conclusion Symptoms: Mild head discomfort and headache. No chest pain. Arhythmias/Ectopy: None ST-T Changes: No significant ST changes Conclusion: Nondiagnostic ECG due to baseline abnormalities. Myoview images reported separately. Test Summary REST . . . . . . . Resting REST 06:55 . . 83 . 147/ 99 . . Stage 1 . . . . . . . Myoview Injected Stage 1 01:00 . . 129 . . . . Stage 2 01:00 . . 111 . 177/105 . . Stage 3 01:00 . . 108 . 168/ 98 . . Stage 4 01:00 . . 99 . 164/ 99 . Stop exercise at 04:00 RECOVERY 01:00 . . 96 . . . . RECOVERY 02:00 . . 94 . 156/ 98 . . RECOVERY 03:00 . . 98 . 156/ 90 . . RECOVERY 03:23 . . 94 . 156/ 90 . . Electronically signed by : Latasha Brooks MD 11/20/2023 15:09:07
--- NOTE | 2023-11-20 11:08 | NM_ITS ---
APPROVED REPORT Exam: Nuclear Stress Test Indication: DYSRHYTHMIA, OBESITY, HTN, DM, FM HX, C.P., SOB, PALPITATIONS Patient Location: Outpatient Stress Tech: Tiff Mena [place] Tech:Yu Gotti, ARRT RT (R)(N)(M) Ht: 5 ft 5 in Wt: 209 lbs Bra Size: DD HR: 78 bpm BP: 166/99 mmHg BSA: 2.02 m2 Rhythm: NSR TID: 1.04 BMI: 34.7 History: DYSRHYTHMIA, OBESITY, HTN, DM, FM HX, C.P., SOB, PALPITATIONS Procedure: Patient received 0.0 mg of intravenous Lexiscan, resting heart rate 78 bpm, resting blood pressure 166/99 mmHg, with Lexiscan maximum heart rate achieved was 130 bpm which is % of the maximum predicted heart rate and blood pressure was 177/105 mmHg. With Lexiscan, patient denied any complaint of chest pain. Cardiac Stress and Resting SPECT Images: Cardiac Stress and Resting SPECT images were obtained using technetium 99m Myoview 32.6 mCi stress and 10.78 mCi at rest. Resting and stress imaging in supine and prone positions demonstrate no evidence of fixed or reversible perfusion defects. Gated imaging demonstrates normal global and regional LV systolic function. LVEF is calculated at 58%. Conclusion: No evidence of fixed or reversible perfusion defects. Gated imaging demonstrates normal global and regional LV systolic function. LVEF is calculated at 58%. Electronically signed by : Latasha Brooks MD 11/20/2023 15:10:26
--- NOTE | 2023-11-20 11:17 | CA_ITS ---
APPROVED REPORT EXAM: Comprehensive 2D, Doppler, and color-flow Echocardiogram Eap Counselor: Jade Curran CRT Ht: 5 ft 5 in Wt: 206lbs BSA: 2.00 BP: 147/94 mmHg Indications: Chest Pain, Obesity, Syncope, Palpitations, Hypertension/HDD 2D Dimensions Left Atrium 3.57 cm LVEF (Pelaez's) 51.80 % LVOT 2.11 cm (M/F) 1.5-2.5 LV Volume 107.70 mL LA Volume 47.40 mL LA Volume Index 23.70 mL/m2 (M/F) 16-34 EF AP4 53.80 % EF AP2 50.5 % EF BP 51.8 % GL Strain -17.3 % M-Mode Dimensions RVDd 2.23 cm (0.9-2.6) LVDd 4.63 cm (3.5-5.7) Ao Diam 4.07 cm (2.0-3.7) LVDs 2.82 cm (3.5-5.7) IVSd 2.19 cm (0.6-1.1) PWd 0.97 cm (0.6-1.1) EF (Teich) 69.50% FS 39.10% EDV (Teich) 98.80 mL TAPSE 2.19 (<1.7) ESV (Teich) 30.10 mL LV Diastology MED E' 4.2 (>= 7 cm/sec) MED A' 8.30 cm/s LAT E' 9.4 (>= 10 cm/sec) LAT A' 11.20 cm/s Aortic Valve AoV Peak Og. 157.0 (50-130 cm/s) AO Peak GR. 9.80 mmHg Tricuspid Valve TR P. Velocity 326.00 cm/s RAP Estimate 10.00 mmHg RVSP 52.50 mmHg Left Ventricle The left ventricle is normal size. The left ventricular systolic function is normal. The left ventricular ejection fraction is within the normal range. There is increased LV wall thickness. There is normal LV segmental wall motion. The left ventricular diastolic function is normal. LVEF is 60%. Right Ventricle The right ventricle is normal size. The right ventricular systolic function is normal. Atria The left atrium size is normal. The right atrium size is normal. There is no Doppler evidence of interatrial shunt. Aortic Valve The aortic valve opens well. There is no aortic valvular stenosis. Trace aortic regurgitation. Mitral Valve The mitral valve is normal in structure. No evidence of mitral valve stenosis. Mild mitral regurgitation. Tricuspid Valve The tricuspid valve leaflets are thin and pliable. Trace tricuspid regurgitation. There is insufficient TR jet to estimate RVSP. Pulmonic Valve The pulmonary valve is normal in structure. Trace pulmonic regurgitation. There is insufficient TR jet to estimate RVSP. Great Vessels The aortic root is normal in size. The ascending aorta is not well visualized. IVC is normal in size and collapses >50% with inspiration. Pericardium There is no pericardial effusion. Other Information Study Quality: Fair Conclusion Normal biventricular systolic function. Mild MR. Electronically signed by : Latasha Brooks MD 11/20/2023 22:23:43
[2023-11-20] MEDS: REGADENOSON 0.4MG/5ML SYRINGE 0.400000000000000022 MG IV (11:20)
[2023-11-20] MEDS: SODIUM CHLORIDE 0.9% 10ML SYR (RAD ONLY) 10 ML IV ×2 (11:20→13:00)
[2023-11-20] MEDS: ISOTOPE MYOVIEW (PER STUDY) 1 DOSE IV (13:47)
== END 2023-11-20 23:59 | disposition home or self-care (01) ==
LOC: RAD 11:08
PROVIDERS: PCP Family Medicine; Visit Provider Nurse Practitioner
DX: R00.2 Palpitations (principal); R06.00 Dyspnea, unspecified; R07.9 Chest pain, unspecified; R55 Syncope and collapse; I10 Essential (primary) hypertension; E11.9 Type 2 diabetes mellitus without complications; Z79.4 Long term (current) use of insulin
CPT/HCPCS: 78452; 93017; 93018; 93306; A9502; J2785

== ENCOUNTER 2023-12-12 16:27 | Outpatient (CLI) | payer OTHER, SELFPAY ==
[2023-12-12 19:51] LABS: Hemoglobin A1C 8.8 % (4.0-6.0)
== END 2023-12-12 23:59 | disposition home or self-care (01) ==
LOC: LAB.DROPOF 16:27
PROVIDERS: PCP Nurse Practitioner Family; Visit Provider Nurse Practitioner Family
DX: E11.9 Type 2 diabetes mellitus without complications (principal); Z79.4 Long term (current) use of insulin
CPT/HCPCS: 83036

== ENCOUNTER 2024-10-02 12:36 | Outpatient (CLI) | payer OTHER, SELFPAY ==
--- NOTE | 2024-10-02 12:43 | XR_ITS ---
FINAL REPORT CLINICAL HISTORY: cough, RIGHT RIB PAIN AFTER FALL COMPARISON: 09/15/2023 FINDINGS: No acute pulmonary density is evident. There is no evidence of effusion or other pleural disease. The mediastinum has a normal appearance. The cardiac silhouette is unremarkable. IMPRESSION: Unremarkable chest exam. Reviewed, Interpreted and Dictated by Reed Crowley MD Transcribed by Lena Mcbride Authenticated and . [facility]
--- NOTE | 2024-10-02 12:43 | XR_ITS ---
FINAL REPORT CLINICAL HISTORY: RT Rib pain s/p fall FINDINGS: RIGHT RIBS Three views were obtained. There is no fracture or dislocation. No soft tissue abnormality is identified. IMPRESSION: No acute process. Reviewed, Interpreted and Dictated by Reed Crowley MD Transcribed by Lena Mcbride Authenticated and . [facility]
== END 2024-10-02 23:59 | disposition home or self-care (01) ==
LOC: RAD 12:38
PROVIDERS: PCP Family Medicine; Visit Provider Nurse Practitioner Family
DX: R07.81 Pleurodynia (principal); Z91.81 History of falling
CPT/HCPCS: 71046; 71100

== ENCOUNTER 2024-10-08 09:14 | Outpatient (CLI) | payer OTHER, SELFPAY ==
--- NOTE | 2024-10-08 09:39 | XR_ITS ---
FINAL REPORT CLINICAL HISTORY: Foot pain FINDINGS: Three views show no evidence of acute displaced fracture or dislocation of the visualized bony architecture. There are mild degenerative changes of the hindfoot. Mild plantar calcaneal spurring is identified. IMPRESSION: No acute findings. Reviewed, Interpreted and Dictated by Reed Crowley MD Transcribed by Lena Mcbride Authenticated and [facility]
--- NOTE | 2024-10-08 09:47 | XR_ITS ---
FINAL REPORT CLINICAL HISTORY: lt knee pain fell 2 mo ago FINDINGS: Three views of the left knee were obtained. There is no acute fracture or dislocation. Soft tissues are unremarkable. IMPRESSION: No acute bony abnormality. Reviewed, Interpreted and Dictated by Reed Crowley MD Transcribed by Lena Mcbride Authenticated and [facility]
[2024-10-08 12:17] LABS: Basophils % 0.6 % (0.1-2.0); Eosinophils # 0.3 K/mm3 (0.0-0.4); Eosinophils % 4.2 % (0.1-12.0); Hematocrit 38.6 % (37.0-47.0); Hemoglobin 13.1 g/dL (12.2-16.2); Lymphocytes # 1.8 K/mm3 (0.7-4.5); Lymphocytes % 27.8 % (10-50); Mean Corpuscular HGB Conc 33.9 g/dL (31.8-35.4); Mean Corpuscular Hemoglobin 30.3 pg (27.0-31.2); Mean Corpuscular Volume 89.4 fl (81-99); Mean Platelet Volume 9.7 fl (7.4-10.4); Monocytes # 0.4 K/mm3 (0.1-1.0); Monocytes % 5.7 % (1.7-9.3); Neutrophils # 4.1 K/mm3 (1.8-7.8); Neutrophils % 61.4 % (37.0-80.0); Nucleated Red Blood Cells # 0 10^3/uL; Nucleated Red Blood Cells % 0 %; Platelet Count 288 K/mm3 (142-424); Red Blood Count 4.32 M/mm3 (4.20-5.40); Red Cell Distribution Width 12.3 % (11.5-17.5); Red Cell Distribution Width-SD 40.6 fL; White Blood Count 6.6 K/mm3 (4.8-10.8)
[2024-10-08 12:35] LABS: Albumin Level 4.5 g/dl (3.5-5.0); Chloride 102 mmol/L (98-107); Potassium 4.7 mmoL/L (3.5-5.1); Sodium 137 mmol/L (136-145)
[2024-10-08 12:38] LABS: Alanine Aminotransferase 20 U/L (12-78); Albumin/Globulin Ratio 1.4 (1.1-1.8); Alkaline Phosphatase 82 U/L (38-126); Anion Gap 12.7 mEq/L (5-15); Aspartate Amino Transferase 22 U/L (14-36); Bilirubin,Total 0.4 mg/dl (0.2-1.3); Blood Urea Nitrogen 16 mg/dl (7-17); Calcium 10.6 mg/dl (8.4-10.2); Carbon Dioxide 27 mmol/L (22.0-30.0); Cholesterol 260 mg/dl (140-200); Estimated Glomerular Filt Rate 75 ml/min (>60); GFR (African American) 90 ML/MIN (>60); Globulin 3.3 g/dL (1.3-3.2); Glucose 227 mg/dl (74-100); Total Protein,Serum 7.8 g/dl (6.3-8.2); Triglycerides 232 mg/dl (30-150); VLDL Cholesterol 46 mg/dL (0-40)
[2024-10-08 12:39] LABS: Chol/HDL Ratio 4.4 (1-3.5); HDL Cholesterol 59 mg/dl (40-60)
[2024-10-08 12:49] LABS: Direct LDL Cholesterol 154.32 mg/dL (100-129)
[2024-10-08 12:55] LABS: Free Thyroxine Index 2.7 ug/dL (5.93-13.13); T4 (Thyroxine) 8.6 ug/dl (5.53-11.0); Triiodothryronine (T3) Uptake 31 % (23.5-40.5)
[2024-10-08 12:57] LABS: 25-OH Vitamin D, Total 30.8 ng/mL (30-100)
[2024-10-08 13:09] LABS: Thyroid Stimulating Hormone 0.71 uIU/mL (0.465-4.68)
[2024-10-08 13:58] LABS: Vitamin B12 434 pg/mL (239-931)
[2024-10-08 14:04] LABS: Hemoglobin A1C 12.4 % (4.0-6.0)
== END 2024-10-08 23:59 | disposition home or self-care (01) ==
PROVIDERS: PCP Nurse Practitioner Family; Visit Provider Nurse Practitioner Family
DX: M79.671 Pain in right foot (principal); M79.672 Pain in left foot; M25.562 Pain in left knee; E11.9 Type 2 diabetes mellitus without complications; R53.83 Other fatigue; E66.811 Obesity, class 1; Z68.33 Body mass index [BMI] 33.0-33.9, adult; Z79.4 Long term (current) use of insulin; Z79.84 Long term (current) use of oral hypoglycemic drugs
CPT/HCPCS: 36415; 73562; 73630; 80053; 80061; 82306; 82607; 83036; 84436; 84443; 84479; 85025

== ENCOUNTER 2025-04-20 13:44 | Emergency (ER) | payer OTHER, SELFPAY ==
[2025-04-20 13:47] VITALS: BP 175/100; PULSE 89; RESP 18; TEMP 36.6; O2SAT 99; BMI 33.6
[2025-04-20 13:58] VITALS: O2SAT 99
--- NOTE | 2025-04-20 14:03 | CT_ITS ---
FINAL REPORT TECHNIQUE: Thin section axial CT with contrast with multiplanar reconstruction This study was performed with techniques to keep radiation doses as low as reasonably achievable, (ALARA). Individualized dose reduction techniques using automated exposure control or adjustment of mA and/or kV according to the patient''s size were employed. CLINICAL HISTORY: short of breath COMPARISON: 04/16/2024 FINDINGS: Pulmonary vessels enhance in normal fashion without evidence of embolism. Thoracic aorta shows no dissection or aneurysm. No pulmonary mass or infiltrate is present. There is no significant pleural effusion. There is no significant pericardial effusion. No mediastinal or hilar adenopathy is present. There is a left adrenal mass measuring 2 cm, unchanged. There are fatty changes to the liver. IMPRESSION: 1. No evidence of pulmonary embolism. Reviewed, Interpreted and Dictated by Reed Crowley MD Transcribed by Lena Mcbride Authenticated and [facility]
[2025-04-20 14:13] LABS: Hematocrit 35.1 % (37.0-47.0); Hemoglobin 12.0 g/dL (12.2-16.2); Immature Granulocytes % 0.4 %; Mean Corpuscular HGB Conc 34.2 g/dL (31.8-35.4); Mean Corpuscular Hemoglobin 30.5 pg (27.0-31.2); Mean Corpuscular Volume 89.1 fl (81-99); Nucleated Red Blood Cells % 0 %; Platelet Count 272 K/mm3 (142-424); Red Blood Count 3.94 M/mm3 (4.20-5.40); Red Cell Distribution Width-SD 40.4 fL; White Blood Count 4.5 K/mm3 (4.8-10.8)
--- NOTE | 2025-04-20 14:19 | ECG_ITS ---
APPROVED REPORT Exam: Resting ECG HR:78 bpm ECG Measurements Heart Rate 78 AXES UT 175 P 41 QRSd 100 QRS 49 QT 370 T 63 QTc 403 Conclusion SINUS RHYTHM LOW QRS VOLTAGE IN PRECORDIAL LEADS [QRS DEFLECTION < 1.0 mV IN CHEST LEADS] BORDERLINE ECG UNCONFIRMED REPORT Electronically signed by : SOLITARIO GASTELUM, 04/22/2025 06:47:55
[2025-04-20 14:24] LABS: Activated Partial Thrombo Time 25.6 seconds (22.8-30.6)
[2025-04-20 14:28] LABS: Coronavirus 19, PCR Not Detected (NotDetected); Influenza A, PCR Not Detected (NotDetected); Influenza B, PCR Not Detected (NotDetected)
[2025-04-20] MEDS: FAMOTIDINE 20MG/2ML VIAL 20 MG IV (14:29)
--- NOTE | 2025-04-20 14:29 | ED_ITS ---
<Statement entered by Jeremías Wood MD - 04/20/25 18:11> I was consulted by the SELINA, and we discussed the complexity of the problems being addressed. I approve the treatment and management plan for this patient's care in the emergency department, thus performing a substantive portion of the medical decision making. Jeremías Wood MD Discharge Plan Disposition Patient Disposition: Home, Self-Care Prescriptions Prescriptions: No Action insulin aspart U-100 [Novolog FlexPen U-100 Insulin] 100 unit/mL (3 mL) insulin pen 10 unit SQ AC Qty: 15 4RF (DME) Dexcom G7 Patient Safety Manager Misc See Rx Instructions .Route Qty: 1 0RF Rx Instructions: As directed rosuvastatin [Crestor] 40 mg tablet 40 mg PO DAILY Qty: 30 5RF bisoprolol fumarate 5 mg tablet 5 mg PO DAILY Qty: 30 5RF amlodipine [Norvasc] 10 mg tablet 10 mg PO DAILY Qty: 90 3RF albuterol sulfate [Ventolin HFA] 90 mcg/actuation HFA aerosol inhaler See Rx Instructions .ROUTE .COMPLEX Qty: 18 0RF Dose Instruction: INHALE 2 PUFFS BY MOUTH EVERY 6 HOURS NEEDED FOR SHORTNESS OF BREATH FOR WHEEZING Rx Instructions: INHALE 2 PUFFS BY MOUTH EVERY 6 HOURS NEEDED FOR SHORTNESS OF BREATH FOR WHEEZING metformin 500 mg tablet extended release 24 hr 1,000 mg PO BID 90 Days Qty: 360 3RF Rezvoglar KwikPen 100 unit/mL (3 mL) insulin pen See Rx Instructions .ROUTE .COMPLEX Qty: 3 3RF Dose Instruction: INJECT 40 UNITS SUBCUTANEOUSLY AT BEDTIME Rx Instructions: INJECT 40 UNITS SUBCUTANEOUSLY AT BEDTIME hydrochlorothiazide 25 mg tablet 25 mg PO DAILY Qty: 90 0RF lisinopril 10 mg tablet 10 mg PO DAILY Qty: 90 0RF Ozempic 0.25 mg or 0.5 mg (2 mg/3 mL) pen injector 0.25 mg SQ WEEKLY Qty: 3 0RF Rx Instructions: for 4 weeks (DME) Dexcom G7 Sensor Device See Rx Instructions .Route Qty: 1 3RF Rx Instructions: As directed ibuprofen 800 mg tablet See Rx Instructions .ROUTE .COMPLEX Qty: 42 0RF Dose Instruction: TAKE 1 TABLET BY MOUTH EVERY 8 HOURS NEEDED FOR PAIN FOR 14 DAYS Rx Instructions: TAKE 1 TABLET BY MOUTH EVERY 8 HOURS NEEDED FOR PAIN FOR 14 DAYS Rebecca PachecoPen 100 unit/mL (3 mL) insulin pen See Rx Instructions .ROUTE .COMPLEX Qty: 9 0RF Dose Instruction: INJECT 50 UNITS SUBCUTANEOUSLY ONCE DAILY Rx Instructions: INJECT 50 UNITS SUBCUTANEOUSLY ONCE DAILY Referrals Follow up/Referrals: Yessica De Jesus APRN [Nurse Practitioner, Family Practice] - See instructions Activity Restrictions/Add. Instructions Additional Instructions/Restrictions: Increase fluids and rest. Workup was negative for pulmonary embolism. Please follow-up with your primary care provider. Clinical Impressions Clinical Impression: Cough Stand Alone Forms Stand Alone Forms: Work/School Release Instructions Patient Instructions: Cough Print Language Print Language: Monegasque Discharge ED Provider: Jeremías Wood General Chief Complaint: Shortness of Breath/Dyspnea Stated Complaint: SOB, back of lung hurts Time Seen by Provider: 04/20/25 13:57 Mode of Arrival: Ambulatory Source of Information: Patient Description of Symptoms (Recalled from ER Triage Doc. by RN): Pt has been experiencing fever, chills, SOB, and painful cough since saturday. Pt states she has also felt dizzy and just overall unwell. History of Present Illness HPI narrative: 54-year-old female presents to the ED with complaint of fever Tmax 102, shortness of breath, chills, cough since Saturday. She had to go to work so she took some DayQuil. She had some neck pain and she says she could barely move it on Saturday. She continued to take DayQuil and now it is fine. She kept having a fever through the weekend. She started getting chest pain through to her back and it became hard to breathe. Her PCP sent her here today for a PE evaluation. She has chest pain with breathing and coughing. She has had no fevers today. She has no nausea, vomiting or diarrhea. Related Data Previous Rx's ?Medication ?Instructions ?Recorded rosuvastatin 40 mg tablet (Crestor) 40 mg PO DAILY #30 tabs 03/03/24 bisoprolol fumarate 5 mg tablet 5 mg PO DAILY #30 tabs 03/11/24 amlodipine 10 mg tablet (Norvasc) 10 mg PO DAILY high blood pressure 04/24/24 #90 tabs Ventolin HFA 90 mcg/actuation See Rx Instructions .Rou te 08/14/24 aerosol inhaler (albuterol sulfate) .COMPLEX #18 grams metformin 500 mg tablet,extended 1,000 mg (2 x 500 mg) PO BID 90 11/02/24 release 24 hr days #360 tabs insulin glargine-aglr 100 unit/mL See Rx Instructions .Route 12/07/24 (3 mL) subcutaneous pen (Rezvoglar .COMPLEX #3 mL KwikPen) hydrochlorothiazide 25 mg tablet 25 mg PO DAILY #90 ta bs 12/16/24 lisinopril 10 mg tablet 10 mg PO DAILY #90 tabs 11/29 02/22 blood-glucose,coating mixer supervisor,cont #1 ea 01/22/25 (Dexcom G7 Patient Safety Manager) insulin aspart U-100 100 unit/mL 10 unit (0.1 mL) SQ A C #15 mL 01/22/25 (3 mL) subcutaneous pen (Novolog FlexPen U-100 Insulin aspart) blood-glucose sensor (Dexcom G7 #1 ea 03/24/25 Sensor device) semaglutide 0.25 mg or 0.5 mg (2 0.25 mg (0.368 mL) SQ WEEKLY #3 mL 03/24/25 mg/3 mL) subcutaneous pen injector (Ozempic) ibuprofen 800 mg tablet See Rx Instructions .Route 1 .COMPLEX #42 tabs insulin glargine-aglr 100 unit/mL See Rx Instructions .Route 04/05/25 (3 mL) subcutaneous pen (Rezvoglar .COMPLEX #9 mL KwikPen) Allergies Allergy/AdvReac Type Severity Reaction Status Date / Time No Known Allergies Allergy Verified 04/20/25 11:50 [facility] Disclaimer: The information contained in this section may have been updated after the patient was seen, as this information can be updated by other users. Medical History Pre-syncope Dyspnea Chest pain Diabetes mellitus, type 2 Depression Anxiety Hypoxic respiratory failure Arthritis Hypertension Surgical History History of Family History Mother Cancer Diabetes Hypertension Grandmother Cancer Coronary artery disease Diabetes Hypertension Social History Smoking Status: Never smoker alcohol intake: never substance use type: denies use current occupational status: employed Travel in the last 8 weeks?: None household members: spouse, children and other housing: house Have you lived/traveled outside [place] in past 30 days?: No Contact w/someone who lives/traveled outside [place] past 30 days?: No Exposure to someone with infectious disease in past 14 days?: No Do you have a fever (greater than 100.4 F or 38 C)?: No Have you tested positive for COVID-19?: No Exposed to someone with COVID-19 in past 14 days?: No Do you have a sore throat?: No Do you have a cough?: No Do you have any weakness?: No Do you have any diarrhea?: No Are you experiencing any unusual bleeding?: No Do you have any muscle aches/pain?: No Do you have any abdominal pain?: No Are you experiencing loss of taste or smell?: No Other Medical History Have you received the Flu Vaccine for this season: No Have you received the Pneumonia Vaccine: No ROS Obtained: Yes Systems reviewed as appropriate & no additional complaints except as documented Constitutional Constitutional: Reports as per HPI Physical Exam General General appearance: alert Head Head exam: normocephalic Eye Eye exam: Present PERRL ENT ENT exam: Present mucous membranes moist Neck Neck exam: Present trachea midline Chest Chest inspection: Present symmetric chest wall rise Respiratory Respiratory exam: Present normal lung sounds bilaterally Cardiovascular Cardiovascular exam: Present regular rate, normal rhythm, normal heart sounds, +S1 and +S2 Abdominal Exam Abdominal exam: Present soft and normal bowel sounds Extremities Exam Extremities exam: Present normal inspection, full ROM and normal capillary refill Back Exam Back exam: Present full ROM Neurological Exam Neurological exam: Present alert, oriented X3 and normal gait Psychiatric Psychiatric exam: Present normal mood Skin Skin exam: Present warm and dry HEART Score HEART Score HEART Score assessment performed?: Yes History (anamnesis): Slightly suspicious ECG: Normal Age: 45-65 years Risk factors: 1-2 risk factors Troponin: </= normal limit HEART Score: 2 Critical Care Critical Care Time Critical Care Time: No Medical Decision Making Freedom Inquiry Pt receiving controlled substance: No Freedom was queried for this patient: No Vital Signs Vital Signs: 04/20/25 13:47 04/20/25 13:58 04/20/25 15:00 Temperature 97.9 F Temperature Source Temporal Artery Scan Pulse Rate 81 Pulse Rate [Right] 89 Respiratory Rate 18 14 Blood Pressure 162/95 H Blood Pressure [Right Arm] 175/100 H Blood Pressure Mean [Right Arm] 125 Blood Pressure Source Blood Pressure Source [Right Arm] Automatic Cuff Blood Pressure Position Blood Pressure Position [Right Arm] Sitting 02 Sat by Pulse Oximetry 99 99 97 Oxygen Delivery Method Room Air Room Air Room Air 04/20/25 15:30 04/20/25 16:00 04/20/25 16:45 Temperature 98.0 F Temperature Source Oral Pulse Rate 71 73 75 Pulse Rate [Right] Respiratory Rate 15 15 18 Blood Pressure 138/80 129/89 136/80 Blood Pressure [Right Arm] Blood Pressure Mean [Right Arm] Blood Pressure Source Automatic Cuff Blood Pressure Source [Right Arm] Blood Pressure Position Sitting Blood Pressure Position [Right Arm] 02 Sat by Pulse Oximetry 97 96 Oxygen Delivery Method Room Air Lab Data Labs: Lab Results 04/20/25 14:00: WBC 4.5 L, RBC 3.94 L, Hgb 12.0 L, Hct 35.1 L, MCV 89.1, MCH 30.5, MCHC 34.2, RDW 12.3, Plt Count 272, MPV 9.0, Neut % (Auto) 47.9, Lymph % (Auto) 35.6, Elliott % (Auto) 10.8 H, Eos % (Auto) 4.4, Baso % (Auto) 0.9, Neut # (Auto) 2.2, Lymph # (Auto) 1.6, Elliott # (Auto) 0.5, Eos # (Auto) 0.2, Baso # (Auto) 0.0, APTT 25.6, Sodium 136, Potassium 3.3 L, Chloride 95 L, Carbon Dioxide 33 H, Anion Gap 11.3, BUN 24 H, Creatinine 1.00, Estimated Creat Clear 93, Estimated GFR 58 L, Est GFR ( Amer) 70, Glucose 164 H, Calcium 9.4, Magnesium 1.8, Total Bilirubin 0.3, AST 33, ALT 35, Alkaline Phosphatase 78, Troponin I < 0.01, Total Protein 7.8, Albumin 4.2, Globulin 3.6 H, Albumin/Globulin Ratio 1.2, Lipase 175 04/20/25 14:21: SARS-CoV-2 (PCR) Not detected, Influenza A Untype (PCR) Not detected, Influenza Type B (PCR) Not detected 04/20/25 14:00 04/20/25 14:00 Response Orders (Tests/Meds): ED MEDICATIONS Discontinued Medications Generic Name Dose Route Start Last Admin Trade Name Freq PRN Reason Stop Dose Admin Aspirin 325 mg 04/20/25 14:04 04/20/25 14:30 Aspirin 325mg Tablet PO 04/20/25 14:05 325 mg ONCE ONE Administration Dexamethasone Sodium Phosphate 8 mg 04/20/25 14:04 04/20/25 14:30 Dexamethasone 4mg/Ml 1ml Vial IV 04/20/25 14:05 8 mg ONCE ONE Administration Famotidine 20 mg 04/20/25 14:04 04/20/25 14:29 Famotidine 20mg/2ml Vial IV 04/20/25 14:05 20 mg ONCE ONE Administration Sodium Chloride 1,000 mls @ 999 mls/hr 04/20/25 14:04 04/20/25 15:58 Sod Chlor 0.9% 1000ml Bag IV 04/20/25 15:04 Infused .Q1H1M ONE Infusion Magnesium Sulfate 2 gm in 50 mls @ 50 mls/hr 04/20/25 14:04 04/20/25 15:59 Magnesium Sulfate 2gm/50ml Premix IV 04/20/25 15:03 Infused ONCE ONE Infusion Iopamidol 70 ml 04/20/25 14:55 04/20/25 14:56 Iopamidol-370 (76%);100ml Bottle IV 04/20/25 14:56 70 ml ONCE ONE Administration Potassium Chloride 60 meq 04/20/25 14:47 04/20/25 14:58 Potassium Chloride 20meq Tab PO 04/20/25 14:48 60 meq ONCE ONE Administration Sodium Chloride 8 ml 04/20/25 14:04 Sodium Chloride 0.9% 10ml Vial IV 05/20/25 14:03 NEEDED PRN dilute pepcid Sodium Chloride 50 ml 04/20/25 14:55 04/20/25 14:55 0.9 % Sodium Chloride 50 Ml Vial IV 04/20/25 14:56 50 ml ONCE ONE Administration Sodium Chloride 10 ml 04/20/25 14:55 04/20/25 14:55 Sodium Chloride 0.9% 10ml Syr (Rad Only) IV 04/20/25 14:56 10 ml ONCE ONE Administration ORDERS Category Date Time Status CTA Chest [CT angio chest PE protocol] Stat Cat Scan 04/20/25 14:03 Completed CBC [Complete Blood Count Auto Diff] Stat Lab 04/20/25 14:00 Completed Comprehensive Metabolic Panel Stat Lab 04/20/25 14:00 Completed Lipase Stat Lab 04/20/25 14:00 Completed Magnesium Stat Lab 04/20/25 14:00 Completed PTT [Activated Partial Thrombo Time] Stat Lab 04/20/25 14:00 Completed Rapid PCR Covid and Flu A/B Stat Lab 04/20/25 14:21 Completed Trop I [Troponin I] Stat Lab 04/20/25 14:00 Completed MDM Narrative Medical Decision Narrative: patient is a 54-year-old female presenting to the emergency department for evaluation of chest pain, fever, chills. Patient is hemodynamically stable and nontoxic-appearing upon arrival, afebrile today. Differential diagnosis includes PE, pneumonia, viral illness, among others. Workup will be conducted with hematologic labs, specific imaging, provocative tests. Initial inventions include crystalloid bolus, analgesics, antibiotics. Initial workup reviewed by me hematologic labs are remarkable for 4.5 white count, potassium 3.3 which was replaced here in the ED, BUN was 24 and creatinine was normal. Troponin was less than 0.01. Patient's flu and COVID was negative. Patient started Saturday with her symptoms.CTA was completed. Impression showed no evidence of pulmonary embolism. I believe this likely is viral in nature. Patient's CT negative officially. Patient is safe for discharge home. Patient and I did talk about the incidental finding on her CT scan for the adrenal mass. I told her that she needed a adrenal mass protocol scan and to talk to her primary care about this.
[2025-04-20 14:30] LABS: Albumin Level 4.2 g/dl (3.5-5.0); Chloride 95 mmol/L (98-107); Potassium 3.3 mmoL/L (3.5-5.1); Sodium 136 mmol/L (136-145)
[2025-04-20] MEDS: ASPIRIN 325MG TABLET 325 MG PO (14:30)
[2025-04-20] MEDS: DEXAMETHASONE 4MG/ML 1ML VIAL 8 MG IV (14:30)
[2025-04-20 14:33] LABS: Alanine Aminotransferase 35 U/L (12-78); Albumin/Globulin Ratio 1.2 (1.1-1.8); Alkaline Phosphatase 78 U/L (38-126); Anion Gap 11.3 mEq/L (5-15); Aspartate Amino Transferase 33 U/L (14-36); Bilirubin,Total 0.3 mg/dl (0.2-1.3); Blood Urea Nitrogen 24 mg/dl (7-17); Calcium 9.4 mg/dl (8.4-10.2); Carbon Dioxide 33 mmol/L (22.0-30.0); Creatinine Clearance Estimated 93 mL/min (50-200); Creatinine,Serum 1.00 mg/dl (0.52-1.04); Estimated Glomerular Filt Rate 58 ml/min (>60); GFR (African American) 70 ML/MIN (>60); Globulin 3.6 g/dL (1.3-3.2); Glucose 164 mg/dl (74-100); Lipase 175 U/L (23-300); Magnesium 1.8 mg/dl (1.6-2.3); Total Protein,Serum 7.8 g/dl (6.3-8.2)
[2025-04-20] MEDS: 0.9 % SODIUM CHLORIDE 1000ML 1,000 ML 999 ML IV (14:33)
[2025-04-20] MEDS: MAGNESIUM SULFATE IN WATER 2 GM/50 ML PIGGYBACK IV (14:34)
[2025-04-20 14:48] LABS: Troponin I < 0.01 ng/ml (0.00-0.034)
[2025-04-20] MEDS: 0.9 % SODIUM CHLORIDE 50 ML VIAL IV (14:55)
[2025-04-20] MEDS: SODIUM CHLORIDE 0.9% 10ML SYR (RAD ONLY) 10 ML IV (14:55)
[2025-04-20] MEDS: IOPAMIDOL-370 (76%);100ML BOTTLE 70 ML IV (14:56)
[2025-04-20] MEDS: POTASSIUM CHLORIDE 20MEQ TAB 60 MEQ PO (14:58)
[2025-04-20 15:00] VITALS: BP 162/95; PULSE 81; RESP 14; O2SAT 97
[2025-04-20 15:30] VITALS: BP 138/80; PULSE 71; RESP 15; O2SAT 97
[2025-04-20 16:00] VITALS: BP 129/89; PULSE 73; RESP 15; O2SAT 96
[2025-04-20 16:45] VITALS: BP 136/80; PULSE 75; RESP 18; TEMP 36.7; O2SAT 99
== END 2025-04-20 16:46 | disposition home or self-care (01) ==
PROVIDERS: Nurse Practitioner; Emergency Provider Student in an Organized Health Care Education/Training Program; PCP Family Medicine
DX: R07.1 Chest pain on breathing (principal); R06.02 Shortness of breath; R50.9 Fever, unspecified; E87.6 Hypokalemia; R42 Dizziness and giddiness; R53.81 Other malaise
CPT/HCPCS: 71275; 80053; 83690; 83735; 84484; 85025; 85730; 87636; 93005; 96365; 96375; 99285; J1100; J1308; J3475; J7030; Q9967

== ENCOUNTER 2025-06-16 09:14 | Emergency (ER) | payer OTHER, SELFPAY ==
[2025-06-16] VITALS (7 sets, daily range): BP systolic 127–155; BP diastolic 87–99; PULSE 72–97; RESP 18; TEMP 36.6–37; O2SAT 96–100; BMI 34.1
--- NOTE | 2025-06-16 09:27 | XR_ITS ---
FINAL REPORT CLINICAL HISTORY: Fall, left medial knee pain COMPARISON: None FINDINGS: 2 views of the left knee were obtained. There is no acute fracture or dislocation. The joint spaces are intact. There is no soft tissue abnormality. IMPRESSION: No acute bony abnormality Reviewed, Interpreted and Dictated by Reed Crowley MD Transcribed by Nancy Zhang Authenticated and [facility]
--- NOTE | 2025-06-16 09:28 | ED_ITS ---
Discharge Plan Disposition Patient Disposition: Home, Self-Care Prescriptions Prescriptions: No Action (DME) Dexcom G7 Electric Arc Welder Misc See Rx Instructions .Route Qty: 1 0RF Rx Instructions: As directed Ozempic 0.25 mg or 0.5 mg (2 mg/3 mL) pen injector 0.5 mg SQ WEEKLY Qty: 3 0RF Rx Instructions: for 4 weeks rosuvastatin [Crestor] 40 mg tablet 40 mg PO DAILY Qty: 30 5RF bisoprolol fumarate 5 mg tablet 5 mg PO DAILY Qty: 30 5RF amlodipine [Norvasc] 10 mg tablet 10 mg PO DAILY Qty: 90 3RF albuterol sulfate [Ventolin HFA] 90 mcg/actuation HFA aerosol inhaler See Rx Instructions .ROUTE .COMPLEX Qty: 18 0RF Dose Instruction: INHALE 2 PUFFS BY MOUTH EVERY 6 HOURS NEEDED FOR SHORTNESS OF BREATH FOR WHEEZING Rx Instructions: INHALE 2 PUFFS BY MOUTH EVERY 6 HOURS NEEDED FOR SHORTNESS OF BREATH FOR WHEEZING metformin 500 mg tablet extended release 24 hr 1,000 mg PO BID 90 Days Qty: 360 3RF Rezvoglar KwikPen 100 unit/mL (3 mL) insulin pen See Rx Instructions .ROUTE .COMPLEX Qty: 3 3RF Dose Instruction: INJECT 40 UNITS SUBCUTANEOUSLY AT BEDTIME Rx Instructions: INJECT 40 UNITS SUBCUTANEOUSLY AT BEDTIME ibuprofen 800 mg tablet See Rx Instructions .ROUTE .COMPLEX Qty: 42 1RF Dose Instruction: TAKE 1 TABLET BY MOUTH EVERY 8 HOURS NEEDED FOR PAIN FOR 14 DAYS Rx Instructions: TAKE 1 TABLET BY MOUTH EVERY 8 HOURS NEEDED FOR PAIN FOR 14 DAYS (DME) Dexcom G7 Sensor Device See Rx Instructions .Route Qty: 1 3RF Rx Instructions: apply every 10 days hydrochlorothiazide 25 mg tablet 25 mg PO DAILY Qty: 90 0RF lisinopril 10 mg tablet 10 mg PO DAILY Qty: 90 0RF Rezvoglar KwikPen 100 unit/mL (3 mL) insulin pen See Rx Instructions .ROUTE .COMPLEX Qty: 9 0RF Dose Instruction: INJECT 50 UNITS SUBCUTANEOUSLY ONCE DAILY Rx Instructions: INJECT 50 UNITS SUBCUTANEOUSLY ONCE DAILY Referrals Follow up/Referrals: Chester Meier DO [Staff Physician, Orthopedics] - See instructions Dago Matthews MD [Primary Care Provider, Internal Medicine] - See instructions Activity Restrictions/Add. Instructions Additional Instructions/Restrictions: Your x-rays did not show any broken bones or dislocations. You likely have a deep bruise as a source of your pain. You can take Tylenol and ibuprofen to help with your symptoms. Use Roland bandage as needed to help with support. Use the crutches as needed to help with support while walking if needed. If your symptoms do not improve in a week, I encourage you to follow with Dr. Meier with orthopedic team. If you develop any new or worsening symptoms, or if you become concerned for your help for any reason, return to the emergency department for evaluation Clinical Impressions Clinical Impression: Acute pain of left knee, Fall Print Language Print Language: Amharic Discharge ED Provider: Jeremías Wood General Adult HPI General Chief complaint: Extremity Injury, Lower Stated complaint: AO12/, pain in Lt knee Time Seen by Provider: 06/16/25 09:20 Mode of Arrival: Ambulatory Source of Information: Patient Description of Symptoms (Recalled from ER Triage Doc. by RN): patient states she fell in the snow yesterday around 8pm, she twisted her left knee. is unable to bend the leg. History of Present Illness HPI narrative: Vidal Cooper is a 54-year-old female with past medical history of diabetes and hypertension who presents to the emergency department after a fall. Patient states that last night, she was getting out of her vehicle and slipped on the ice. She states that her body twisted and she hit her left side of her body on the ground. She does state that ever since then she has had pain on the medial side of her left knee. She is able to bear weight on it but is painful to do so. She states that the pain is worse if she straightens out her leg completely. She reports some mild ankle soreness has not noticed any swelling. She denies any head trauma or loss of consciousness. She tried taking Tylenol without significant relief. Related Data Previous Rx's ?Medication ?Instructions ?Recorded rosuvastatin 40 mg tablet (Crestor) 40 mg PO DAILY #30 tabs 03/03/24 bisoprolol fumarate 5 mg tablet 5 mg PO DAILY #30 tabs 03/11/24 amlodipine 10 mg tablet (Norvasc) 10 mg PO DAILY high blood pressure 04/24/24 #90 tabs Ventolin HFA 90 mcg/actuation See Rx Instructions .Rou te 08/14/24 aerosol inhaler (albuterol sulfate) .COMPLEX #18 grams metformin 500 mg tablet,extended 1,000 mg (2 x 500 mg) PO BID 90 11/02/24 release 24 hr days #360 tabs insulin glargine-aglr 100 unit/mL See Rx Instructions .Route 12/07/24 (3 mL) subcutaneous pen (Rezvoglar .COMPLEX #3 mL KwikPen) blood-glucose,instructor [employer],cont #1 ea 01/22/25 (Dexcom G7 Electric Arc Welder) semaglutide 0.25 mg or 0.5 mg (2 0.5 mg (0.736 mL) SQ WEEKLY #3 mL 04/20/25 mg/3 mL) subcutaneous pen injector (Ozempic) ibuprofen 800 mg tablet See Rx Instructions .Route 1 07/14/24 .COMPLEX #42 tabs blood-glucose sensor (Dexcom G7 #1 ea 05/24/25 Sensor device) hydrochlorothiazide 25 mg tablet 25 mg PO DAILY #90 ta bs 06/11/25 insulin glargine-aglr 100 unit/mL See Rx Instructions .Route 06/11/25 (3 mL) subcutaneous pen (Rezvoglar .COMPLEX #9 mL KwikPen) lisinopril 10 mg tablet 10 mg PO DAILY #90 tabs 05/31 08/25 Allergies Allergy/AdvReac Type Severity Reaction Status Date / Time No Known Allergies Allergy Verified 04/30/25 11:32 [facility] Disclaimer: The information contained in this section may have been updated after the patient was seen, as this information can be updated by other users. Medical History Pre-syncope Dyspnea Chest pain Diabetes mellitus, type 2 Depression Anxiety Hypoxic respiratory failure Arthritis Hypertension Surgical History History of Family History Mother Cancer Diabetes Hypertension Grandmother Cancer Coronary artery disease Diabetes Hypertension Social History Smoking Status: Never smoker alcohol intake: never substance use type: denies use current occupational status: employed Travel in the last 8 weeks?: None household members: spouse, children and other housing: house Have you lived/traveled outside [place] in past 30 days?: No Contact w/someone who lives/traveled outside [place] past 30 days?: No Exposure to someone with infectious disease in past 14 days?: No Do you have a fever (greater than 100.4 F or 38 C)?: No Have you tested positive for COVID-19?: No Exposed to someone with COVID-19 in past 14 days?: No Do you have a sore throat?: No Do you have a cough?: No Do you have any weakness?: No Do you have any diarrhea?: No Are you experiencing any unusual bleeding?: No Do you have any muscle aches/pain?: No Do you have any abdominal pain?: No Are you experiencing loss of taste or smell?: No Other Medical History Have you received the Flu Vaccine for this season: No Have you received the Pneumonia Vaccine: No ROS Obtained: Yes Systems reviewed as appropriate & no additional complaints except as documented Physical Exam General General appearance: alert and in no apparent distress Head Head exam: atraumatic Eye Eye exam: Present normal appearance ENT ENT exam: Present normal external ear exam Neck Neck exam: Present full ROM Chest Chest inspection: Present symmetric chest wall rise Respiratory Respiratory exam: Absent respiratory distress Cardiovascular Cardiovascular exam: Present regular rate and normal rhythm Abdominal Exam Abdominal exam: Absent distention Extremities Exam Extremities exam: Present normal inspection Expanded Lower Extremity Exam Left: Leg image: 2 1. Tenderness without swelling or deformity. Knee flexion and extension 5 out of 5. Ankle dorsiflexion plantarflexion 5 out of 5. Sensation grossly intact to the lower extremity. 2+ DP and PT pulses Back Exam Back exam: Present normal inspection Neurological Exam Neurological exam: Present alert and oriented X3 Psychiatric Psychiatric exam: Present normal affect Skin Skin exam: Present warm and dry Medical Decision Making Medical Records Screening: Per USPSTF and CDC recommendations, given the prevalence of disease in our region, it is our hospital?s policy to screen for HIV and viral Hepatitis for all patients aged 18 and over and those with ongoing risk factors. [facility] Inquiry Pt receiving controlled substance: No Vital Signs: 06/16/25 09:20 06/16/25 09:21 06/16/25 09:30 Temperature 98.6 F Temperature Source Oral Pulse Rate 85 75 Pulse Rate [Right Radial] 97 H Respiratory Rate 18 Blood Pressure 155/99 H 141/94 H Blood Pressure [Right Arm] 155/99 H Blood Pressure Mean [Right Arm] 117 Blood Pressure Source [Right Arm] Automatic Cuff Blood Pressure Position [Right Arm] Sitting 02 Sat by Pulse Oximetry 99 100 97 Oxygen Delivery Method Room Air 06/16/25 10:01 06/16/25 10:30 06/16/25 11:00 Temperature Temperature Source Pulse Rate 82 79 72 Pulse Rate [Right Radial] Respiratory Rate Blood Pressure 134/87 128/91 H 147/99 H Blood Pressure [Right Arm] Blood Pressure Mean [Right Arm] Blood Pressure Source [Right Arm] Blood Pressure Position [Right Arm] 02 Sat by Pulse Oximetry 97 96 97 Oxygen Delivery Method Room Air Orders (Tests/Meds): ED MEDICATIONS Discontinued Medications Generic Name Dose Route Start Last Admin Trade Name Freq PRN Reason Stop Dose Admin Ibuprofen 600 mg 06/16/25 09:27 06/16/25 09:33 Ibuprofen 600 Mg Tablet PO 06/16/25 09:28 600 mg ONCE ONE Administration ORDERS Category Date Time Status Knee XR left 2 views [XR knee LT 2V] Stat Exams 06/16/25 09:27 Completed HIV Combo Stat Lab 06/16/25 09:26 Ordered Hepatitis C Ab Qual. W/ RFX Stat Lab 06/16/25 09:26 Ordered Medical Decision Narrative: Vidal Cooper is a 54-year-old female with past medical history of diabetes and hypertension who presents to the emergency department after a fall. Patient states that last night, she was getting out of her vehicle and slipped on the ice. She states that her body twisted and she hit her left side of her body on the ground. She does state that ever since then she has had pain on the medial side of her left knee. She is able to bear weight on it but is painful to do so. She states that the pain is worse if she straightens out her leg completely. She reports some mild ankle soreness has not noticed any swelling. She denies any head trauma or loss of consciousness. She tried taking Tylenol without significant relief. On arrival, patient is mildly hypertensive, hemodynamically stable, breathing comfortably on room air with appropriate oxygen saturation. Physical exam, as stated above, revealed overall well- appearing female in no significant distress. She is alert and answering my questions appropriately. She has some tenderness over the medial aspect of her left knee without swelling or deformity. Knee flexion extension intact. Ankle dorsiflexion and plantarflexion intact. Sensation grossly intact to the left lower extremity. 2+ DP and PT pulses. Differential diagnosis includes, but is not limited to: Fracture, soft tissue injury, ligamentous injury, muscle strain, among others. The most morbid conditions were considered and workup was based on these. Workup in the emergency department included: Left knee x-ray and 600 mg of oral ibuprofen. X-ray imaging was interpreted by me personally. No acute fracture or dislocation. No significant soft tissue swelling. See radiology report for details. On reassessment, patient remains in stable condition. I do feel that she likely has deep bruise as a source of her pain, however cannot completely rule out ligamentous injury. Will place patient in Roland bandage and give crutches. Instruct her to follow-up with Dr. Meier in a week if symptoms do not improve. Recommended Tylenol and ibuprofen, ice and heat. Return precautions were given. All questions were answered. She demonstrated understanding and was in agreement with this plan. She was then discharged from the emergency department in stable condition. Critical Care Critical Care Time Critical Care Time: No
[2025-06-16] MEDS: IBUPROFEN 600 MG TABLET PO (09:33)
== END 2025-06-16 11:39 | disposition home or self-care (01) ==
PROVIDERS: Emergency Provider Student in an Organized Health Care Education/Training Program; PCP Family Medicine
DX: M25.562 Pain in left knee (principal); W00.0XXA Fall on same level due to ice and snow, initial encounter
CPT/HCPCS: 73560; 99283; 99285